=== PATIENT | female | born 1965 | race Caucasian/White ===

== ENCOUNTER → 2020-01-19 13:58 | Outpatient (CLI) | payer OTHER, SELFPAY ==
[2020-01-26 09:51] LABS: HPV APTIMA, High Risk Negative (Negative); HPV Reflexed? YES, CHARGE PATIENT
== END ==
PROVIDERS: PCP Family Medicine; Visit Provider Student in an Organized Health Care Education/Training Program
DX: Z12.4 Encounter for screening for malignant neoplasm of cervix (principal)
CPT/HCPCS: 87624; 88175; G0145

== ENCOUNTER → 2020-02-15 13:27 | Outpatient (CLI) | payer OTHER, SELFPAY ==
--- NOTE | 2020-02-15 13:31 | BI_ITS ---
MAMMOGRAPHY - BILATERAL SCREENING REASON FOR EXAM: Female, 54 years old. Routine annual screening examination. PERTINENT HISTORY: Grandmother with breast cancer. TECHNIQUE: Digital bilateral breast shay (3D mammographic acquisition) in the CC and MLO projections. 2-D mediolateral oblique (MLO) and craniocaudad (CC) views of both breasts were obtained. CAD: Full Field Digital Mammography with Computer Added Detection was performed. COMPARISON: Comparison is made with prior examination dated 09/30/2009. FINDINGS: Breast Composition: The breasts are heterogeneously dense, which may obscure small masses. There are no dominant masses or suspicious calcifications. No other significant abnormalities are identified. There has been no significant change since the prior study. BI/SCREEN MAMM (CAD) W/SHAY BILAT IMPRESSION: Stable bilateral screening mammogram. Yearly follow-up mammogram recommended. (A) ASSESSMENT CATEGORY: BIRADS Category 1: Negative. A letter regarding these results will be sent to the patient by the facility within 30 days. Approximately 10% of breast cancers are not detected by mammography. A normal mammogram should not delay biopsy of a clinically suspicious abnormality. [id number] Electronically Signed: Charles Caballero, at 14:51 EST , Service support ,
== END ==
PROVIDERS: PCP Family Medicine; Referring Provider Student in an Organized Health Care Education/Training Program; Visit Provider Student in an Organized Health Care Education/Training Program
DX: Z12.31 Encounter for screening mammogram for malignant neoplasm of breast (principal); Z80.3 Family history of malignant neoplasm of breast
CPT/HCPCS: 77063; 77067

== ENCOUNTER → 2020-12-25 10:05 | Outpatient (CLI) | payer OTHER, SELFPAY ==
[2020-12-25 11:53] LABS: Vitamin D,25 Hydroxy 24.4 ng/mL
[2020-12-25 11:58] LABS: ALB/GLOB Ratio 1.2 RATIO (0.9-2.4); AST(SGOT) 16 U/L (15-37); Alanine Aminotransfer ALT/SGPT 18 U/L (13-56); Albumin, Serum 4.2 g/dL (3.2-5.0); Alkaline Phosphatase 62 U/L (45-117); Anion Gap 6 (5-15); BUN 17 mg/dL (7-18); BUN/Creat Ratio 20.9 RATIO (10-20); Calcium,Total 9.1 mg/dL (8.5-10.1); Chloride 104 mmol/L (98-107); Cholesterol 246 mg/dL (200); Creatinine, Serum 0.81 mg/dL (0.55-1.02); EST Glomerular Filtration Rate 78 mL/min (>60); Est Glom Filt Rate - Afr Amer 95 mL/min (>60); Globulin 3.5 g/dL (2.2-4.2); Glucose 80 mg/dL (74-106); Hemoglobin A1c 5.5 % (3.8-5.6); High Density Lipoprotein 89 mg/dL; Potassium 3.7 mmol/L (3.5-5.1); Protein, Total 7.7 g/dL (6.4-8.2); Sodium Level 141 mmol/L (136-145); Thyroid Stim Hormone (TSH) 0.77 uIU/mL (0.358-3.74); Triglycerides 53 mg/dL; Very Low Density Lipoprotein 11 mg/dL (5-40)
== END ==
PROVIDERS: PCP Family Medicine; Visit Provider Student in an Organized Health Care Education/Training Program
DX: Z13.89 Encounter for screening for other disorder (principal)
CPT/HCPCS: 36415; 80053; 80061; 82306; 83036; 84443

== ENCOUNTER → 2020-12-26 14:39 | Outpatient (CLI) | payer OTHER, SELFPAY ==
--- NOTE | 2020-12-26 14:43 | BI_ITS ---
MAMMOGRAPHY - BILATERAL DIAGNOSTIC REASON FOR EXAM: Female, 55 years old. Right axillary lump. PERTINENT HISTORY: Grandmother with breast cancer. TECHNIQUE: Digital bilateral breast cheryl (3D mammographic acquisition) in the CC and MLO projections. 2-D mediolateral oblique (MLO) and craniocaudad (CC) views of both breasts were obtained. CAD: Full Field Digital Mammography with Computer Added Detection was performed. COMPARISON: Comparison is made with prior study dated 02/15/2020. FINDINGS: Breast Composition: The breasts are heterogeneously dense, which may obscure small masses. There are no dominant masses or suspicious calcifications. No other significant abnormalities are identified. There has been no significant change since the prior study. BI/DIAG MAMM W/CAD, BILAT IMPRESSION: Stable bilateral diagnostic mammogram. With the patient''s history of a right axillary lump, correlation with ultrasound is recommended. ASSESSMENT CATEGORY: BIRADS Category 0: Incomplete. Need additional imaging evaluation. A letter regarding these results will be sent to the patient by the facility within 30 days. Approximately 10% of breast cancers are not detected by mammography. A normal mammogram should not delay biopsy of a clinically suspicious abnormality. Electronically Signed: Charles Caballero MD at 15:41 EDT , Service support ,
--- NOTE | 2020-12-26 14:43 | US_ITS ---
STUDY: ULTRASOUND BREAST - RIGHT REASON FOR EXAM: Female, 55 years old. Right axillary lump. TECHNIQUE: Axial and longitudinal images of the RIGHT breast were performed with a high resolution ultrasound transducer. # OF IMAGES: 49 COMPARISON: Comparison is made with prior mammogram dated 12/26/2020. FINDINGS: RIGHT Breast: The right axilla was examined by ultrasound. No sonographic abnormality is seen. US/Breast Limited Unilateral IMPRESSION: No sonographic abnormality is seen. ASSESSMENT CATEGORY: BIRADS Category 1: Negative. A letter regarding these results will be sent to the patient by the facility within 30 days. Electronically Signed: Charles Caballero MD at 13:24 EDT , Service support ,
== END ==
LOC: OPBI 14:39
PROVIDERS: PCP Family Medicine; Visit Provider Student in an Organized Health Care Education/Training Program
DX: N63.31 Unspecified lump in axillary tail of the right breast (principal)
CPT/HCPCS: 76642; 77062; 77066; G0279

== ENCOUNTER → 2021-09-08 | Outpatient (CLI) | payer OTHER, SELFPAY ==
[2021-09-08 12:16] LABS: Absolute Lymphocyte Count 1.49 X10^3/uL (0.83-4.51); Absolute Neutrophil Count 2.7 X10^3/uL (2.0-7.7); Basophil# 0.02 X10^3/uL; Basophil% 0.4 % (0-1); Eosinophil# 0.02 X10^3/uL; Eosinophils% 0.4 % (0-5); Hemoglobin 14.7 g/dL (12.0-15.0); Lymphocyte # 1.49 X10^3/ul (0.83-4.51); Mean Corp Hgb Conc 32.7 g/dL (32-36); Mean Corpuscular Hgb 31.5 pg (27.0-32.0); Mean Corpuscular Volume 96.6 fL (81-99); Mean Platelet Vol. 11.2 fl (6.2-12.0); Monocyte# 0.36 X10^3/uL; Monocyte% 7.7 % (0-10); NRBC Flagged by Analyzer 0 % (0-5); Neutrophil # 2.69 X10^3/uL (2.7-7.7); Platelet Count 207 K/mm3 (150-450); RBC Distribution Width CV 11.8 % (11.6-14.6); RBC Distribution Width SD 41.6 fl (35.1-43.9); Red Blood Count 4.66 M/mm3 (4.2-5.4); White Blood Count 4.7 K/mm3 (4.4-11.0)
[2021-09-08 12:31] LABS: ALB/GLOB Ratio 1.2 RATIO (0.9-2.4); AST(SGOT) 20 U/L (15-37); Alanine Aminotransfer ALT/SGPT 30 U/L (13-56); Albumin, Serum 4.2 g/dL (3.2-5.0); Alkaline Phosphatase 60 U/L (45-117); Anion Gap 5 (5-15); BUN 21 mg/dL (7-18); BUN/Creat Ratio 25.4 RATIO (10-20); Calcium,Total 9.4 mg/dL (8.5-10.1); Chloride 104 mmol/L (98-107); Cholesterol 273 mg/dL (200); Creatinine, Serum 0.83 mg/dL (0.55-1.02); EST Glomerular Filtration Rate 77 mL/min (>60); Est Glom Filt Rate - Afr Amer 93 mL/min (>60); Globulin 3.5 g/dL (2.2-4.2); Glucose 96 mg/dL (74-106); High Density Lipoprotein 85 mg/dL; Potassium 4.7 mmol/L (3.5-5.1); Protein, Total 7.7 g/dL (6.4-8.2); Sodium Level 139 mmol/L (136-145); Triglycerides 92 mg/dL; Very Low Density Lipoprotein 18 mg/dL (5-40)
== END | disposition home or self-care (01) ==
LOC: BIMLAB 10:24
PROVIDERS: PCP Internal Medicine; Referring Provider Internal Medicine; Visit Provider Internal Medicine
DX: Z00.00 Encounter for general adult medical examination without abnormal findings (principal)
CPT/HCPCS: 36415; 80053; 80061; 85025

== ENCOUNTER → 2022-01-09 | Outpatient (CLI) | payer OTHER, SELFPAY ==
[2022-01-09 16:57] LABS: ALB/GLOB Ratio 1.4 RATIO (0.9-2.4); AST(SGOT) 19 U/L (15-37); Alanine Aminotransfer ALT/SGPT 36 U/L (13-56); Albumin, Serum 4.1 g/dL (3.2-5.0); Alkaline Phosphatase 52 U/L (45-117); Anion Gap 7 (5-15); BUN 18 mg/dL (7-18); BUN/Creat Ratio 26.2 RATIO (10-20); Calcium,Total 9.1 mg/dL (8.5-10.1); Chloride 106 mmol/L (98-107); Creatinine, Serum 0.69 mg/dL (0.55-1.02); EST Glomerular Filtration Rate 95 mL/min (>60); Est Glom Filt Rate - Afr Amer 115 mL/min (>60); Glucose 128 mg/dL (74-106); Potassium 3.7 mmol/L (3.5-5.1); Protein, Total 7.1 g/dL (6.4-8.2); Sodium Level 141 mmol/L (136-145)
== END | disposition home or self-care (01) ==
LOC: BIMLAB 15:27
PROVIDERS: PCP Internal Medicine; Referring Provider Internal Medicine; Visit Provider Internal Medicine
DX: E78.2 Mixed hyperlipidemia (principal)
CPT/HCPCS: 36415; 80053

== ENCOUNTER → 2022-01-12 | Outpatient (CLI) | payer OTHER, SELFPAY ==
[2022-01-12 12:41] LABS: Cholesterol 141 mg/dL (200); High Density Lipoprotein 89 mg/dL; Triglycerides 49 mg/dL; Very Low Density Lipoprotein 10 mg/dL (5-40)
== END | disposition home or self-care (01) ==
LOC: BIMLAB 08:59
PROVIDERS: PCP Internal Medicine; Referring Provider Internal Medicine; Visit Provider Internal Medicine
DX: E78.5 Hyperlipidemia, unspecified (principal)
CPT/HCPCS: 36415; 80061

== ENCOUNTER → 2022-03-18 | Outpatient (CLI) | payer OTHER, SELFPAY ==
--- NOTE | 2022-03-18 13:22 | US_ITS ---
STUDY: ULTRASOUND BREAST - RIGHT REASON FOR EXAM: Female, 56 years old. Right axillary lump. TECHNIQUE: Axial and longitudinal images of the RIGHT breast were performed with a high resolution ultrasound transducer. # OF IMAGES: 17 COMPARISON: Comparison is made with prior mammogram done earlier in the day as well as prior ultrasound of the right breast dated 12/26/2020. FINDINGS: RIGHT Breast: Targeted right axillary ultrasound was obtained. No sonographic abnormality is seen. US/Breast Limited Unilateral IMPRESSION: No sonographic abnormality is seen. ASSESSMENT CATEGORY: BIRADS Category 1: Negative. A letter regarding these results will be sent to the patient by the facility within 30 days. Electronically Signed: Charles Caballero MD at 15:07 EST ,
--- NOTE | 2022-03-18 13:22 | BI_ITS ---
MAMMOGRAPHY - BILATERAL SCREENING REASON FOR EXAM: Female, 56 years old. Routine annual screening examination. PERTINENT HISTORY: Non-contributory. TECHNIQUE: Digital bilateral breast shay (3D mammographic acquisition) in the CC and MLO projections. 2-D mediolateral oblique (MLO) and craniocaudad (CC) views of both breasts were obtained. CAD: Full Field Digital Mammography with Computer Added Detection was performed. COMPARISON: Comparison is made with prior study dated 12/26/2020 and 02/15/2020. FINDINGS: Breast Composition: The breasts are heterogeneously dense, which may obscure small masses. There are no dominant masses or suspicious calcifications. No other significant abnormalities are identified. There has been no significant change since the prior study. BI/SCRN MAMM (CAD)W/SHAY BILAT IMPRESSION: Stable bilateral screening mammogram. Yearly follow-up mammogram recommended. (A) ASSESSMENT CATEGORY: BIRADS Category 1: Negative. A letter regarding these results will be sent to the patient by the facility within 30 days. Approximately 10% of breast cancers are not detected by mammography. A normal mammogram should not delay biopsy of a clinically suspicious abnormality. [id number] Electronically Signed: Charles Caballero MD at 14:29 EST ,
== END | disposition home or self-care (01) ==
LOC: OPBI 13:19
PROVIDERS: PCP Internal Medicine; Visit Provider Student in an Organized Health Care Education/Training Program
DX: Z12.31 Encounter for screening mammogram for malignant neoplasm of breast (principal); R22.9 Localized swelling, mass and lump, unspecified; N63.31 Unspecified lump in axillary tail of the right breast
CPT/HCPCS: 76642; 77063; 77067

== ENCOUNTER → 2022-09-16 | Outpatient (CLI) | payer OTHER, SELFPAY ==
[2022-09-16 16:49] LABS: Absolute Lymphocyte Count 2.07 X10^3/uL (0.83-4.51); Absolute Neutrophil Count 4.4 X10^3/uL (2.0-7.7); Basophil# 0.02 X10^3/uL; Basophil% 0.3 % (0-1); Eosinophil# 0.04 X10^3/uL; Eosinophils% 0.6 % (0-5); Hemoglobin 14.4 g/dL (12.0-15.0); Lymphocyte # 2.07 X10^3/ul (0.83-4.51); Mean Corpuscular Hgb 31.3 pg (27.0-32.0); Mean Corpuscular Volume 97.8 fL (81-99); Mean Platelet Vol. 11.1 fl (6.2-12.0); Monocyte# 0.42 X10^3/uL; Monocyte% 6.1 % (0-10); NRBC Flagged by Analyzer 0 % (0-5); Neutrophil # 4.35 X10^3/uL (2.7-7.7); Neutrophil % 62.9 % (47-70); Platelet Count 226 K/mm3 (150-450); RBC Distribution Width CV 11.6 % (11.6-14.6); RBC Distribution Width SD 41.9 fl (35.1-43.9); White Blood Count 6.9 K/mm3 (4.4-11.0)
[2022-09-16 17:15] LABS: ALB/GLOB Ratio 1.2 RATIO (0.9-2.4); AST(SGOT) 14 U/L (15-37); Alanine Aminotransfer ALT/SGPT 26 U/L (13-56); Alkaline Phosphatase 58 U/L (45-117); Anion Gap 8 (5-15); BUN 15 mg/dL (7-18); Calcium,Total 8.9 mg/dL (8.5-10.1); Chloride 105 mmol/L (98-107); Cholesterol 145 mg/dL (200); Creatinine, Serum 0.68 mg/dL (0.55-1.02); EST Glomerular Filtration Rate 95 mL/min (>60); Est Glom Filt Rate - Afr Amer 115 mL/min (>60); Globulin 3.4 g/dL (2.2-4.2); Glucose 83 mg/dL (74-106); High Density Lipoprotein 73 mg/dL; Potassium 3.9 mmol/L (3.5-5.1); Protein, Total 7.4 g/dL (6.4-8.2); Sodium Level 141 mmol/L (136-145); Triglycerides 215 mg/dL; Very Low Density Lipoprotein 43 mg/dL (5-40)
== END | disposition home or self-care (01) ==
LOC: BIMLAB 15:21
PROVIDERS: PCP Internal Medicine; Visit Provider Internal Medicine
DX: Z00.00 Encounter for general adult medical examination without abnormal findings (principal)
CPT/HCPCS: 36415; 80053; 80061; 85025

== ENCOUNTER → 2023-03-24 | Outpatient (CLI) | payer OTHER, SELFPAY ==
--- NOTE | 2023-03-24 14:15 | BI_ITS ---
MAMMOGRAPHY - BILATERAL SCREENING REASON FOR EXAM: Female, 57 years old. Routine annual screening examination. PERTINENT HISTORY: Grandmother with breast cancer. TECHNIQUE: Digital bilateral breast shay (3D mammographic acquisition) in the CC and MLO projections. 2-D mediolateral oblique (MLO) and craniocaudad (CC) views of both breasts were obtained. CAD: Full Field Digital Mammography with Computer Added Detection was performed. COMPARISON: Comparison is made with prior study dated March 18, 2022 and December 26, 2020. FINDINGS: Breast Composition: The breasts are heterogeneously dense, which may obscure small masses. There are no dominant masses or suspicious calcifications. No other significant abnormalities are identified. There has been no significant change since the prior study. BI/SCRN MAMM (CAD)W/SHAY BILAT IMPRESSION: Stable bilateral screening mammogram. Yearly follow-up mammogram recommended. (A) ASSESSMENT CATEGORY: BIRADS Category 1: Negative. A letter regarding these results will be sent to the patient by the facility within 30 days. Approximately 10% of breast cancers are not detected by mammography. A normal mammogram should not delay biopsy of a clinically suspicious abnormality. [id number] Electronically Signed: Charles Caballero MD at 15:12 EST ,
== END | disposition home or self-care (01) ==
LOC: OPBI 14:15
PROVIDERS: PCP Internal Medicine; Referring Provider Internal Medicine; Visit Provider Internal Medicine
DX: Z12.31 Encounter for screening mammogram for malignant neoplasm of breast (principal); Z80.3 Family history of malignant neoplasm of breast
CPT/HCPCS: 77063; 77067

== ENCOUNTER → 2023-10-04 | Outpatient (CLI) | payer OTHER, SELFPAY ==
[2023-10-04 12:08] LABS: Absolute Lymphocyte Count 1.45 X10^3/uL (0.83-4.51); Absolute Neutrophil Count 3.6 X10^3/uL (2.0-7.7); Basophil# 0.03 X10^3/uL; Basophil% 0.5 % (0-1); Eosinophil# 0.02 X10^3/uL; Eosinophils% 0.4 % (0-5); Hematocrit 44.5 % (37-47); Hemoglobin 14.6 g/dL (12.0-15.0); Lymphocyte # 1.45 X10^3/ul (0.83-4.51); Lymphocyte % 26.1 % (19-41); Mean Corp Hgb Conc 32.8 g/dL (32-36); Mean Corpuscular Hgb 30.5 pg (27.0-32.0); Mean Corpuscular Volume 93.1 fL (81-99); Mean Platelet Vol. 11.1 fl (6.2-12.0); Monocyte# 0.39 X10^3/uL; NRBC Flagged by Analyzer 0 % (0-5); Neutrophil # 3.64 X10^3/uL (2.7-7.7); Neutrophil % 65.6 % (47-70); Platelet Count 213 K/mm3 (150-450); RBC Distribution Width CV 11.8 % (11.6-14.6); RBC Distribution Width SD 40.3 fl (35.1-43.9); Red Blood Count 4.78 M/mm3 (4.2-5.4); White Blood Count 5.6 K/mm3 (4.4-11.0)
[2023-10-04 12:22] LABS: ALB/GLOB Ratio 1.2 RATIO (0.9-2.4); AST(SGOT) 17 U/L (15-37); Alanine Aminotransfer ALT/SGPT 19 U/L (13-56); Alkaline Phosphatase 57 U/L (45-117); Anion Gap 4 (5-15); BUN 12 mg/dL (7-18); BUN/Creat Ratio 16.3 RATIO (10-20); Calcium,Total 9.4 mg/dL (8.5-10.1); Chloride 106 mmol/L (98-107); Cholesterol 165 mg/dL (200); Creatinine, Serum 0.74 mg/dL (0.55-1.02); EST Glomerular Filtration Rate 87 mL/min (>60); Est Glom Filt Rate - Afr Amer 105 mL/min (>60); Globulin 3.3 g/dL (2.2-4.2); Glucose 95 mg/dL (74-106); High Density Lipoprotein 92 mg/dL; Potassium 4.5 mmol/L (3.5-5.1); Protein, Total 7.3 g/dL (6.4-8.2); Sodium Level 138 mmol/L (136-145); Triglycerides 65 mg/dL; Very Low Density Lipoprotein 13 mg/dL (5-40)
== END | disposition home or self-care (01) ==
LOC: BIMLAB 10:23
PROVIDERS: PCP Internal Medicine; Referring Provider Internal Medicine; Visit Provider Internal Medicine
DX: Z00.00 Encounter for general adult medical examination without abnormal findings (principal); E78.5 Hyperlipidemia, unspecified
CPT/HCPCS: 36415; 80053; 80061; 85025

== ENCOUNTER → 2024-03-29 | Outpatient (CLI) | payer OTHER, SELFPAY ==
--- NOTE | 2024-03-29 12:52 | BI_ITS ---
PROCEDURE: SCRN MAMM (CAD)W/SHAY BILAT REASON FOR EXAM: F, Age 58 y/o, grandmother with breast cancer. TECHNIQUE: Bilateral screening digital breast tomosynthesis with 2D and 3D images. Computer aided detection. COMPARISON: Prior exam(s) dating back to March 24, 2023.. FINDINGS: The breasts are heterogeneously dense which may obscure small masses. Stable examination. No suspicious masses, areas of developing architectural distortion, or suspicious calcifications. BI/SCRN MAMM (CAD)W/SHAY BILAT IMPRESSION: BI-RADS 1: NEGATIVE. RECOMMEND ANNUAL MAMMOGRAPHIC SCREENING. Follow-up code: Routine Follow-up The patient will be notified of the results by letter. Reading Location: [place] [id number]
== END | disposition home or self-care (01) ==
PROVIDERS: PCP Internal Medicine; Referring Provider Nurse Practitioner Family; Visit Provider Nurse Practitioner Family
DX: Z12.31 Encounter for screening mammogram for malignant neoplasm of breast (principal); Z80.3 Family history of malignant neoplasm of breast
CPT/HCPCS: 77063; 77067

== ENCOUNTER → 2024-09-25 | Outpatient (CLI) | payer OTHER, SELFPAY ==
[2024-09-25 12:37] LABS: Hematocrit 44.8 % (37-47); Hemoglobin 14.7 g/dL (12.0-15.0); Immature Granulocytes Count 0.010 X10^3/uL (0.0-0.0); Mean Corp Hgb Conc 32.8 g/dL (32-36); Mean Corpuscular Volume 95.1 fL (81-99); Mean Platelet Vol. 10.9 fl (6.2-12.0); NRBC Flagged by Analyzer 0 % (0-5); Platelet Count 206 K/mm3 (150-450); RBC Distribution Width CV 11.6 % (11.6-14.6); RBC Distribution Width SD 40.7 fl (35.1-43.9); Red Blood Count 4.71 M/mm3 (4.2-5.4); White Blood Count 4.7 K/mm3 (4.4-11.0)
[2024-09-25 13:36] LABS: AST(SGOT) 21 U/L (<=31); Alanine Aminotransfer ALT/SGPT 19 U/L (<=34); Albumin, Serum 4.6 g/dL (3.5-5.0); Alkaline Phosphatase 56 U/L (35-104); Anion Gap 11 (5-15); BUN 15 mg/dL (4-19); BUN/Creat Ratio 18.9 RATIO (10-20); Calcium,Total 9.8 mg/dL (7.6-11.0); Carbon Dioxide 25.9 mmol/L (21.0-32.0); Chloride 104 mmol/L (98-108); Cholesterol 161 mg/dL (<=200); Globulin 2.5 g/dL (2.2-4.2); Glucose 91 mg/dL (70-99); Low Density Lipoprotein Calc. 67 mg/dL; Potassium 4.9 mmol/L (3.3-5.1); Triglycerides 42 mg/dL; Very Low Density Lipoprotein 8 mg/dL (5-40); cholesterol:hdl ratio screen 1.89
--- OUTSIDE RECORDS SUMMARY | 2024-09-25 21:06 | XMS RPT_ITS | CCD ---
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 Daphnie Asher Primary Care Provider [phone] [place], Dr. Eller Attending Provider [phone] Dr. Daphnie Asher Referring Provider [phone])2 Cee Cox Attending Provider Unavailable [place]hia, Dr. Eller Primary Care Provider [phone] Dr. Daphnie Asher Attending Provider [phone])2 Dr. Daphnie Asher Referring Provider [phone])2 Dr. Daphnie Asher Primary Care Provider [phone] [phone]) Dr. Daphnie Asher Attending Provider [phone])2 Dr. Daphnie Asher Referring Provider [phone])2 Dr. Daphnie Asher Primary Care Provider 1(33 0) Dr. Daphnie Asher Attending Provider [phone])2 Dr. Daphnie Asher Referring Provider [phone])2 Daphnie Asher Attending Unavailable Oleghe, Efewongbe Referring Unavailable Pilloghe, Efewongbe Primary Care Unavailable Pilloghe, Efewongbe Attending Unavailable Oleghe, Efewongbe Referring Unavailable Oleghe, Efewongbe Primary Care Unavailable Emily Turner Attending Unavailable Oleghe, Efewongbe Referring Unavailable Oleghe, Efewongbe Primary Care Unavailable Pilloghrena Efewongbe Attending Unavailable Oleghe, Efewongbe Referring Unavailable Oleghe, Efewongbe Primary Care Unavailable Oleghe, Efetsuardo Attending Unavailable PillomarielaLynn chaseestuardo Referring Unavailable [facility] Unavailable Emily Turner Attending Unavailable Emily Turner Referring [facility]available [facility] Unavailable Allergies Allergy Classification Reported Allergen(s) Allergy Type Date of Onset Reaction(s) Facility (6 sources) venom-honey bee Allergy to substance 09-09-2021 Swollen [facility] (1 source) venom-honey bee Drug allergy (disorder) 09-25-2024 [facility] Repository Medications Current Medications Medication Drug Class(es) Dates Sig (Normalized) Sig (Original) acetaminophen 500 mg / diphenhydrAMINE hydrochloride 25 mg oral tablet (5 sources) Histamine-1 Receptor Antagonist Start: 01-12-2022 take 1 tablet by mouth at bedtime Diphenhydramine- Acetaminophen (Tylenol Pm Extra Strength) 25-500 mg tablet Active 1 TABLET PO AT BEDTIME January 12, 2022 12:00am inulin 2000 mg chewable tablet (5 sources) Start: 01-12-2022 Inulin (Fiber Gummies) 2 gram tablet,chewable Active GM PO January 12, 2022 12:00am L.Acidoph, Paracasei,B. Lactis (Digestive Advantage Advanced) 10 billion cell capsule (5 sources) Start: 01-12-2022 L.Acidoph, Paracasei,B. Lactis (Digestive Advantage Advanced) 10 billion cell capsule Active CELL PO January 12, 2022 1:00am Start: 01-12-2022 L.Acidoph, Par acasei,B. Lactis (Digestive Advantage Advanced) 10 billion cell capsule Active CELL PO January 12, 2022 12:00am rosuvastatin calcium 20 mg oral tablet (12 sources) HMG-CoA Reductase Inhibitor Start: 09-16-2021 End: 12-09-2022 take 20 mg by mouth once daily Rosuvastatin Active 20 MG PO DAILY 90 December 09, 2022 3:47pm traZODone hydrochloride 50 mg oral tablet (2 sources) Serotonin Reuptake Inhibitor Start: 09-16-2022 take 50 mg by mouth at bedtime Trazodone Active 50 MG PO AT BEDTIME 60 September 15, 2022 11:00pm Completed/Discontinued Medications Medication Drug Class(es) Dates Sig (Normalized) Sig (Original) amitriptyline hydrochloride 25 mg oral tablet (6 sources) Tricyclic Antidepressant Start: 02-04-2021 End: 09-08-2021 take 25 mg by mouth at bedtime Amitriptyline Discontinued 25 MG PO AT BEDTIME February 04, 2021 12:00am September 08, 2021 9:24am calcium ascorbate 500 mg oral tablet (6 sources) Start: 02-04-2021 End: 01-12-2022 take 500 mg by mouth once daily Ascorbate Calcium (Vitamin C) Discontinued 500 MG PO DAILY February 04, 2021 12:00am January 12, 2022 8:30am cholecalciferol 0.025 mg oral tablet (6 sources) Vitamin D Start: 02-04-2021 End: 09-16-2022 take 25 ug by mouth once daily Cholecalciferol (Vitamin D3) Discontinued 25 MCG PO DAILY February 04, 2021 12:00am September 16, 2022 2:01pm Diphenhydramine-Acet aminophen (6 sources) Start: 02-04-2021 End: 02-04-2021 Diphenhydramine-Wilfredo taminophen Discontinued ML PO February 04, 2021 12:00am February 04, 2021 3:40pm Start: 02-04-2021 End: 02-04-2021 Diphenhydramine-Acetaminophe n Discontinued ML PO February 04, 2021 1:00am February 04, 2021 4:40pm [place] 1-Kxi-Wvw-Fish Oil (Fi sh Oil) 1,200 (144-216) mg capsule (5 sources) Start: 01-12-2022 End: 09-16-2022 [place] 8-Hsf-Qfp-Fish Oil (Fi sh Oil) 1,200 (144-216) mg capsule Discontinued CAP PO January 12, 2022 12:00am September 16, 2022 2:01pm 2400/720mg Start: 01-12-2022 End: 09-16-2022 [place] 2-Akn-Vyd-Fish Oil (Fi sh Oil) 1,200 (144-216) mg capsule Discontinued CAP PO January 12, 2022 1:00am September 16, 2022 3:01pm 2400/720mg Start: 01-12-2022 [place] 3-Dha-Ep a-Fish Oil (Fish Oil) 1,200 (144-216) mg capsule Active CAP PO January 12, 2022 12:00am 2400/720mg 72 hr scopolamine 0.0139 mg/hr transdermal system (6 sources) Anticholinergic Start: 08-14-2021 End: 09-08-2021 Scopolamine Base Discontinued 1 PATCH TD Every 3 Days 4 August 13, 2021 11:00pm September 08, 2021 8:50am Problems Active Problems Problem Classification Problem Date Documented Da te Episodic/Chronic Disorders of lipid metabolism (11 sources) Hyperlipidemia; Translations: [Hyperlipidemia, unspecified] Onset: 10-18-2023 Chronic Headache; including migraine (7 sources) Headache; Translations: [Headache] 02-04-2021 Episodic Headache; including migraine (1 source) Headache; including migraine; Translations: [Headache, unspecified] Onset: 10-18-2023 Past or Other Problems Problem Classification Problem Date Documented Da te Episodic/Chronic Other screening for suspected conditions (not mental disorders or infectious disease) (8 sources) Patient encounter status; Translations: [Encounter for screening for malignant neoplasm of colon] Onset: 04-18-2024 Episodic Results Test Name Value Interpretation Reference Range Facility CBC W/Diff, Automatedon 08-30 Absolute Lymph 1.35 X10 3/uL Normal 0.83-4.51 [facility] Comment on above: Performed By: #### L 500.4050, L500.4100, L100.0100 #### [facility] [address] [place], [address] Absolute Neut 3.0 X10 3/uL Normal 2.0-7.7 [facility] Comment on above: Performed By: #### L 500.4050, L500.4100, L100.0100 #### [facility] [address] [place], [address] Basophils/100 WBC (Bld) 0.6 % Normal 0-1 [facility] Comment on above: Performed By: #### L 500.4050, L500.4100, L100.0100 #### [facility] [address] [place], [address] Eosinophils/100 WBC (Bld) 0.4 % Normal 0-5 [facility] Comment on above: Performed By: #### L 500.4050, L500.4100, L100.0100 #### [facility] [address] [place], [address] Erythrocyte distribution width (RBC) [Ratio] 11.6 % Normal 11.6-14.6 [facility] Comment on above: Performed By: #### L 500.4050, L500.4100, L100.0100 #### [facility] [address] [place], [address] Hematocrit (Bld) [Volume fraction] 44.8 % Normal 37-47 [facility] Comment on above: Performed By: #### L 500.4050, L500.4100, L100.0100 #### [facility] [address] [place], [address] Hemoglobin (Bld) [Mass/Vol] 14.7 g/dL Normal 12.0-15.0 [facility] Comment on above: Performed By: #### L 500.4050, L500.4100, L100.0100 #### [facility] [address] [place], [address] IG% 0.200 Normal 0.0-0.9 [facility] Comment on above: Result Comment: IG% - Immature Granulocytes (promyelocytes, myelocytes and metamyelocytes) > 1% indicates that a LEFT SHIFT is Present. Performed By: #### L 500.4050, L500.4100, L100.0100 #### [facility] [address] [place], [address] Lymphocytes/100 WBC (Bld) 28.9 % Normal 19-41 [facility] Comment on above: Performed By: #### L 500.4050, L500.4100, L100.0100 #### [facility] [address] [place], [address] MCH (RBC) [Entitic mass] 31.2 pg Normal 27.0-32.0 [facility] Comment on above: Performed By: #### L 500.4050, L500.4100, L100.0100 #### [facility] [address] [place], [address] MCHC (RBC) [Mass/Vol] 32.8 g/dL Normal 32-36 [facility] Comment on above: Performed By: #### L 500.4050, L500.4100, L100.0100 #### [facility] [address] [place], [address] MCV (RBC) [Entitic vol] 95.1 fL Normal 81-99 [facility] Comment on above: Performed By: #### L 500.4050, L500.4100, L100.0100 #### [facility] [address] [place], [address] Monocytes/100 WBC (Bld) 5.4 % Normal 0-10 [facility] Comment on above: Performed By: #### L 500.4050, L500.4100, L100.0100 #### [facility] [address] [place], [address] Neutrophils/100 WBC (Bld) 64.5 % Normal 47-70 [facility] Comment on above: Performed By: #### L 500.4050, L500.4100, L100.0100 #### [facility] [address] [place], [address] Nucleated RBC (Bld) [#/Vol] 0 10*3/uL Normal 0-5 [facility] Comment on above: Performed By: #### L 500.4050, L500.4100, L100.0100 #### [facility] [address] [place], [address] Platelet mean volume (Bld) [Entitic vol] 10.9 fL Normal 6.2-12.0 [facility] Comment on above: Performed By: #### L 500.4050, L500.4100, L100.0100 #### [facility] [address] [place], [address] Platelets (Bld) [#/Vol] 206 10*3/uL Normal 150-450 [facility] Comment on above: Performed By: #### L 500.4050, L500.4100, L100.0100 #### [facility] [address] [place], [address] RBC (Bld) [#/Vol] 4.71 10*6/uL Normal 4.2-5.4 [facility] Comment on above: Performed By: #### L 500.4050, L500.4100, L100.0100 #### [facility] [address] [place], [address] RDW SD 40.7 fl Normal 35.1-43.9 [facility] Comment on above: Performed By: #### L 500.4050, L500.4100, L100.0100 #### [facility] [address] [place], [address] WBC (Bld) [#/Vol] 4.7 10*3/uL Normal 4.4-11.[address] [facility] Comment on above: Performed By: #### L 500.4050, L500.4100, L100.0100 #### [facility] [address] [place], [address] Comprehensive Metabolic Prof mdon 09-25-2024 Albumin [Mass/Vol] 4.6 g/dL Normal 3.5-5.[address] [facility] Comment on above: Performed By: #### L 500.4050, L500.4100, L100.0100 #### [facility] [address] [place], [address] Albumin/Globulin [Mass ratio] 1.9 {ratio} Normal 0.9-2.4 [facility] Comment on above: Performed By: #### L 500.4050, L500.4100, L100.0100 #### [facility] [address] [place], [address] ALK PHOS 56 U/L Normal 35-104 [facility] Comment on above: Performed By: #### L 500.4050, L500.4100, L100.0100 #### [facility] [address] [place], [address] ALT [Catalytic activity/Vol] 19 U/L Normal <=34 [facility] Comment on above: Performed By: #### L 500.4050, L500.4100, L100.0100 #### [facility] [address] [place], [address] AST [Catalytic activity/Vol] 21 U/L Normal <=31 [facility] Comment on above: Performed By: #### L 500.4050, L500.4100, L100.0100 #### [facility] [address] [place], [address] Bilirubin [Mass/Vol] 0.74 mg/dL Normal 0.00-1.30 [facility] Comment on above: Performed By: #### L 500.4050, L500.4100, L100.0100 #### [facility] [address] [place], [address] BUN/CRE 18.9 RATIO Normal 10-20 [facility] Comment on above: Performed By: #### L 500.4050, L500.4100, L100.0100 #### [facility] [address] [place], [address] Calcium [Mass/Vol] 9.8 mg/dL Normal 7.6-11.[address] [facility] Comment on above: Performed By: #### L 500.4050, L500.4100, L100.0100 #### [facility] [address] [place], [address] Chloride [Moles/Vol] 104 mmol/L Normal 98-108 [facility] Comment on above: Performed By: #### L 500.4050, L500.4100, L100.0100 #### [facility] [address] [place], [address] CO2 [Moles/Vol] 25.9 mmol/L Normal 21.0-32.0 [facility] Comment on above: Performed By: #### L 500.4050, L500.4100, L100.0100 #### [facility] [address] [place], [address] Creatinine [Mass/Vol] 0.77 mg/dL Normal 0.70-1.20 [facility] Comment on above: Performed By: #### L 500.4050, L500.4100, L100.0100 #### [facility] [address] [place], [address] GAP 11 Normal 5-15 [facility] Comment on above: Performed By: #### L 500.4050, L500.4100, L100.0100 #### [facility] [address] [place], [address] GFR/1.73 sq M.predicted among non-blacks MDRD (S/P/Bld) [Vol rate/Area] 90 mL/min/{1.73_m2} Normal >60 [facility] Comment on above: Result Comment: mL/m in/1.73m2 CKD-EPI Creatinine Equation (2020) Performed By: #### L 500.4050, L500.4100, L100.0100 #### [facility] [address] [place], [address] Globulin (S) [Mass/Vol] 2.5 g/dL Normal 2.2-4.2 [facility] Comment on above: Performed By: #### L 500.4050, L500.4100, L100.0100 #### [facility] [address] [place], [address] Glucose [Mass/Vol] 91 mg/dL Normal 70-[address] [facility] Comment on above: Performed By: #### L 500.4050, L500.4100, L100.0100 #### [facility] [address] [place], [address] Potassium [Moles/Vol] 4.9 mmol/L Normal 3.3-5.1 [facility] Comment on above: Performed By: #### L 500.4050, L500.4100, L100.0100 #### [facility] [address] [place], [address] Sodium [Moles/Vol] 141 mmol/L Normal 133-[address] [facility] Comment on above: Performed By: #### L 500.4050, L500.4100, L100.0100 #### [facility] [address] [place], [address] T PROT 7.1 g/dL Normal 5.9-8.4 [facility] Comment on above: Performed By: #### L 500.4050, L500.4100, L100.0100 #### [facility] [address] [place], [address] Urea nitrogen [Mass/Vol] 15 mg/dL Normal 4-19 [facility] Comment on above: Performed By: #### L 500.4050, L500.4100, L100.0100 #### [facility] [address] [place], [address] Lipid Profileon 09-25-2024 CHOL:HDL 1.89 Normal [facility] Comment on above: Performed By: #### L 500.4050, L500.4100, L100.0100 #### [facility] [address] [place], [address] Cholesterol [Mass/Vol] 161 mg/dL Normal <=200 [facility] Comment on above: Result Comment: Chol esterol level, Desirable <200 mg/dL Borderline high cholesterol 200-239 mg/dL High cholesterol >=240 mg/dL Recommendations of the NCEP Adult Treatment Panel for the following risk-cutoff thresholds for the [place] Citizen population. Performed By: #### L 500.4050, L500.4100, L100.0100 #### [facility] [address] [place], [address] Cholesterol in HDL [Mass/Vol] 85 mg/dL Normal [facility] Comment on above: Result Comment: Barb onal Cholesterol Education Program (NCEP) guidelines: <40 mg/dL: Low HDL-cholesterol (major risk factor for CHD) >= 60 mg/dL: High HDL-cholesterol (negative risk factor for CHD) HDL-cholesterol is affected by a number of factors, e.g. smoking, exercise, hormones, sex and age. Performed By: #### L 500.4050, L500.4100, L100.0100 #### [facility] [address] [place], [address] Cholesterol in LDL [Mass/Vol] 67 mg/dL Normal [facility] Comment on above: Result Comment: Bord mjiton=686-336 mg/dL Higher Thxm=232 mg/dL or greater Friedwald Equation for LDL-C Performed By: #### L 500.4050, L500.4100, L100.0100 #### [facility] [address] [place], [address] Cholesterol in VLDL [Mass/Vol] 8 mg/dL Normal 5-40 [facility] Comment on above: Performed By: #### L 500.4050, L500.4100, L100.0100 #### [facility] [address] [place], [address] Triglyceride [Mass/Vol] 42 mg/dL Normal [facility] Comment on above: Result Comment: The drugs N-Acetylcysteine and Metamizole may falsely depress this assay. Normal range: <150 mg/dL Borderline High: 150-199 mg/dL High: 200-499 mg/dL Very High: >500 mg/dL Performed By: #### L 500.4050, L500.4100, L100.0100 #### [facility] [address] [place], [address] SCRN MAMM (CAD)W/SHAY BILATo n 03-29-2024 SCRN MAMM (CAD)W/SHAY BILAT [facility] [address] [place], [place] [address] SCRN MAMM (CAD)W/SHAY BILAT MR#: [id number] Acct: [id number] Name: JOSE ROACH Rep #: [id number] : 1965 F 58 From: Charles doyle MD PCP: Dr. 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 TECHNIQUE: Bilateral screening digital breast tomosynthesis with 2D and 3D images. Computer aided detection. COMPARISON: Prior exam(s) dating back to March 24, 2023.. FINDINGS: The breasts are heterogeneously dense which may obscure small masses. Stable examination. No suspicious masses, areas of developing architectural distortion, or suspicious calcifications. BI/SCRN MAMM (CAD)W/SHAY BILAT IMPRESSION: BI-RADS 1: NEGATIVE. RECOMMEND ANNUAL MAMMOGRAPHIC SCREENING. Follow-up code: Routine Follow-up The patient will be notified of the results by letter. Reading Location: [place] [address] CC: MISHA Turner; Dr. Daphnie Asher MD Music Intern: Signed Normal [facility] Transcription Coordinator Office Visit Reporton 12-30-2023 Transcription Coordinator Office Visit Report [facility] [address], [address] [place] [address] OFFICE VISIT Date of Service: 12/30/23 MR#: [id number] Acct: [id number] Name: JOSE ROACH Rep #: [id number] : 1965 Provider: MISHA Donohue Age/Sex: 58/F Location: [facility] Status: Signed Intake Vital Signs 03/17/23 15:55 10/04/23 10:03 12/30/23 09:03 Height 5 ft 8 in 5 ft 8 in 5 ft 8 in Weight: 140 lb 144 lb BMI 21.2 21.9 BP 108/64 120/73 Blood Pressure Location Lt brachial Position Sitting Respiration 14 Pulse 72 Pulse Source Monitor Temp 97.2 F L Pulse Oximetry (%) 99 Oxygen Delivery Method room air 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 Clinching Machine Operator Required: No Is patient in pain?: No Allergies venom-honey bee Allergy (Intermediate, Verified 12/30/23 09:04) Swollen Medications ???Medication ???Instructions ???Recorded ???Confirmed ???Type diphenhydramine 25 1 tab PO QHS PRN 01/12/22 12/30/23 History mg-acetaminophen 500 mg tablet (Tylenol PM Extra Strength) inulin 2 gram chewable tablet g PO 01/12/22 12/30/23 History (Fiber Gummies) rosuvastatin 20 mg tablet 20 mg PO DAILY #90 tabs 08/29/23 12/30/23 Rx Is last menstrual period known: No Post menopausal: Yes Date of menopause: 03/01/18 (Greater than 5 years ago. ) Patient : No : No Control Method: none PFSH Medical History Preventative health care Health care maintenance Headache Hyperlipidemia Colon cancer screening Family History (Updated 12/30/23 @ 09:06 by Krupa Gamble) Father Cancer Grandmother Breast cancer, Onset Age: 40 Social History (Updated 12/30/23 @ 09:07 by Krupa Gamble) adopted: No number of children: 3 current occupational status: retired sexually active: No Smoking Status: Never smoker alcohol intake: never substance use type: does not use rafael/episcopalian: Spiritism seatbelt use: always do you feel safe at home: Yes additional social history: History 3 Elective abortions Hx Para 3 Spontaneous abortions Hx # Term Pregnancies Ectopic pregnancies Hx # Pregnancies Multiple births # of living children 3 HPI Encounter for routine gynecological examination Details: JOSE ROACH is a 58 year old who presents for annual exam. She reports no issues or concerns today. 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 Last PAP: 2019; negative cyt/negative HPV. History of abnormal PAP: no Last mammogram: 2023 History of abnormal mammogram: no; does have axillary lump; right side. previously worked up (2020) with negative ultrasound. Has had greater than 20 yrs. Colon cancer screenin-cologaurd. Other preventative health care screenings: [place]- pcp Female Reproductive History Questions: metorrhagia: No, sexually active: No, dyspareunia: No and PCB: No Date of menopause: 03/01/18 (Greater than 5 years ago. ) ROS Const Constitutional: Denies chills, fatigue, fever(s), headache(s) or weight loss Eyes Eyes: Denies change in vision ENT ENT: Denies dizziness Resp Resp: Denies cough GI GI: Denies abdominal pain, constipation or nausea : Denies difficulty voiding, dysuria, hematuria, nipple discharge, pelvic pain, prolapse symptoms, urinary incontinence, vaginal discharge, vaginal dryness, vaginal odor or vaginal pruritus Skin Skin/Breast: Denies alopecia, rash, breast mass, breast pain, breast skin changes or nipple discharge Neuro Neuro: Denies dizziness Psych Psych: Denies anxiety or depression Endo Endo: Denies cold intolerance, excessive sweating or heat intolerance Exam Const General: cooperative, healthy appearing, comfortable, no acute distress, well groomed and well hydrated Nutritional Appearance: well nourished Orientation: alert, awake and oriented x3 HENMT Head: normal to inspection and normocephalic Ears: hearing grossly normal bilaterally and external ears normal Nose: external nose normal Face and sinus: normal facial exam Eyes General: appearance normal, both eyes and all related structures Neck Neck: normal visual inspection, full ROM and no lymphadenopathy Thyroid: thyroid normal Chest Chest palpation inspection: normal inspection of the chest Breast inspection: normal inspection of the breasts and normal inspection of the axillae Breast palpation: normal palpation of the breasts, normal palpation of the axillae and no axillary lymphadenopathy Resp Effort Inspection: normal respiratory effort, able to speak in complete sentences and symmetric chest movement GI Inspection: normal to inspection Palpation: soft and no hepatosplenomegaly General: bladder rojas (more content not included)... Normal [facility] CBC W/Diff, Automatedon 08-0 5-2023 Absolute Lymph 1.45 X10 3/uL Normal 0.83-4.51 [facility] Comment on above: Performed By: #### L 500.4100, L100.0100, L500.4050 #### [facility] [address] [facility] [place], [address] Absolute Neut 3.6 X10 3/uL Normal 2.0-7.7 [facility] Comment on above: Performed By: #### L 500.4100, L100.0100, L500.4050 #### [facility] [address] [place], [address] Basophils/100 WBC (Bld) 0.5 % Normal 0-1 [facility] Comment on above: Performed By: #### L 500.4100, L100.0100, L500.4050 #### [facility] [address] [place], [address] Eosinophils/100 WBC (Bld) 0.4 % Normal 0-5 [facility] Comment on above: Performed By: #### L 500.4100, L100.0100, L500.4050 #### [facility] [address] [place], [address] Erythrocyte distribution width (RBC) [Ratio] 11.8 % Normal 11.6-14.6 [facility] Comment on above: Performed By: #### L 500.4100, L100.0100, L500.4050 #### [facility] [address] [place], [address] Hematocrit (Bld) [Volume fraction] 44.5 % Normal 37-47 [facility] Comment on above: Performed By: #### L 500.4100, L100.0100, L500.4050 #### [facility] [address] [place], [address] Hemoglobin (Bld) [Mass/Vol] 14.6 g/dL Normal 12.0-15.0 [facility] Comment on above: Performed By: #### L 500.4100, L100.0100, L500.4050 #### [facility] [address] [place], [address] IG% 0.400 Normal 0.0-0.9 [facility] Comment on above: Result Comment: IG% - Immature Granulocytes (promyelocytes, myelocytes and metamyelocytes) > 1% indicates that a LEFT SHIFT is Present. Performed By: #### L 500.4100, L100.0100, L500.4050 #### [facility] [address] [place], [address] Lymphocytes/100 WBC (Bld) 26.1 % Normal 19-41 [facility] Comment on above: Performed By: #### L 500.4100, L100.0100, L500.4050 #### [facility] [address] [place], [address] MCH (RBC) [Entitic mass] 30.5 pg Normal 27.0-32.0 [facility] Comment on above: Performed By: #### L 500.4100, L100.0100, L500.4050 #### [facility] [address] [place], [address] MCHC (RBC) [Mass/Vol] 32.8 g/dL Normal 32-36 [facility] Comment on above: Performed By: #### L 500.4100, L100.0100, L500.4050 #### [facility] [address] [place], [address] MCV (RBC) [Entitic vol] 93.1 fL Normal 81-99 [facility] Comment on above: Performed By: #### L 500.4100, L100.0100, L500.4050 #### [facility] [address] [place], [address] Monocytes/100 WBC (Bld) 7.0 % Normal 0-10 [facility] Comment on above: Performed By: #### L 500.4100, L100.0100, L500.4050 #### [facility] [address] [place], [address] Neutrophils/100 WBC (Bld) 65.6 % Normal 47-70 [facility] Comment on above: Performed By: #### L 500.4100, L100.0100, L500.4050 #### [facility] [address] [place], [address] Nucleated RBC (Bld) [#/Vol] 0 10*3/uL Normal 0-5 [facility] Comment on above: Performed By: #### L 500.4100, L100.0100, L500.4050 #### [facility] [address] [place], [address] Platelet mean volume (Bld) [Entitic vol] 11.1 fL Normal 6.2-12.0 [facility] Comment on above: Performed By: #### L 500.4100, L100.0100, L500.4050 #### [facility] [address] [place], [address] Platelets (Bld) [#/Vol] 213 10*3/uL Normal 150-450 [facility] Comment on above: Performed By: #### L 500.4100, L100.0100, L500.4050 #### [facility] [address] [place], [address] RBC (Bld) [#/Vol] 4.78 10*6/uL Normal 4.2-5.4 [facility] Comment on above: Performed By: #### L 500.4100, L100.0100, L500.4050 #### [facility] [address] [place], [address] RDW SD 40.3 fl Normal 35.1-43.9 [facility] Comment on above: Performed By: #### L 500.4100, L100.0100, L500.4050 #### [facility] [address] [place], [address] WBC (Bld) [#/Vol] 5.6 10*3/uL Normal 4.4-11.[address] [facility] Comment on above: Performed By: #### L 500.4100, L100.0100, L500.4050 #### [facility] [address] [place], [address] Comprehensive Metabolic Prof [facility] 10-04-2023 Albumin [Mass/Vol] 4.0 g/dL Normal 3.2-5.[address] [facility] Comment on above: Performed By: #### L 500.4100, L100.0100, L500.4050 #### [facility] [address] [place], [address] Albumin/Globulin [Mass ratio] 1.2 {ratio} Normal 0.9-2.4 [facility] Comment on above: Performed By: #### L 500.4100, L100.0100, L500.4050 #### [facility] [address] [place], [address] ALK P 57 U/L Normal 45-117 [facility] Comment on above: Performed By: #### L 500.4100, L100.0100, L500.4050 #### [facility] [address] [place], [address] ALT [Catalytic activity/Vol] 19 U/L Normal 13-56 [facility] Comment on above: Performed By: #### L 500.4100, L100.0100, L500.4050 #### [facility] [address] [place], [address] AST [Catalytic activity/Vol] 17 U/L Normal 15-37 [facility] Comment on above: Performed By: #### L 500.4100, L100.0100, L500.4050 #### [facility] [address] [place], [address] Bilirubin [Mass/Vol] 1.00 mg/dL Normal 0.20-1.00 [facility] Comment on above: Result Comment: For patients on eltrombopag therapy, use of Dimension [place] TBIL is not recommended. Performed By: #### L 500.4100, L100.0100, L500.4050 #### [facility] [address] [place], [address] BUN/CRE 16.3 RATIO Normal 10-20 [facility] Comment on above: Performed By: #### L 500.4100, L100.0100, L500.4050 #### [facility] [address] [place], [address] CA,Total 9.4 mg/dL Normal 8.5-10.1 [facility] Comment on above: Performed By: #### L 500.4100, L100.0100, L500.4050 #### [facility] [address] [place], [address] Chloride [Moles/Vol] 106 mmol/L Normal 98-107 [facility] Comment on above: Performed By: #### L 500.4100, L100.0100, L500.4050 #### [facility] [address] [place], [address] CO2 [Moles/Vol] 28.0 mmol/L Normal 21.0-32.0 [facility] Comment on above: Performed By: #### L 500.4100, L100.0100, L500.4050 #### [facility] [address] [place], [address] Creatinine [Mass/Vol] 0.74 mg/dL Normal 0.55-1.02 [facility] Comment on above: Result Comment: The validity of the calculated GFR GFRAA in patients over 70 years has not been determined. Clinical correlation is essential. Performed By: #### L 500.4100, L100.0100, L500.4050 #### [facility] [address] [place], [address] EST GFR - AA 105 mL/min Normal >60 [facility] Comment on above: Result Comment: Afri can [place] Citizen GFR Calc Performed By: #### L 500.4100, L100.0100, L500.4050 #### [facility] [address] [place], [address] GAP 4 Low 5-15 [facility] Comment on above: Performed By: #### L 500.4100, L100.0100, L500.4050 #### [facility] [address] [place], [address] GFR/1.73 sq M.predicted among non-blacks MDRD (S/P/Bld) [Vol rate/Area] 87 mL/min/{1.73_m2} Normal >60 [facility] Comment on above: Result Comment: Non- GFR Calc Performed By: #### L 500.4100, L100.0100, L500.4050 #### [facility] [address] [place], [address] Globulin (S) [Mass/Vol] 3.3 g/dL Normal 2.2-4.2 [facility] Comment on above: Performed By: #### L 500.4100, L100.0100, L500.4050 #### [facility] [address] [place], [address] Glucose [Mass/Vol] 95 mg/dL Normal 74-[address] [facility] Comment on above: Performed By: #### L 500.4100, L100.0100, L500.4050 #### [facility] [address] [place], [address] Potassium [Moles/Vol] 4.5 mmol/L Normal 3.5-5.1 [facility] Comment on above: Performed By: #### L 500.4100, L100.0100, L500.4050 #### [facility] [address] [place], [address] Sodium [Moles/Vol] 138 mmol/L Normal 136-[address] [facility] Comment on above: Performed By: #### L 500.4100, L100.0100, L500.4050 #### [facility] [address] [place], [address] T PROT 7.3 g/dL Normal 6.4-8.2 [facility] Comment on above: Performed By: #### L 500.4100, L100.0100, L500.4050 #### [facility] [address] [place], [address] Urea nitrogen [Mass/Vol] 12 mg/dL Normal 7-18 [facility] Comment on above: Performed By: #### L 500.4100, L100.0100, L500.4050 #### [facility] [address] [place], [address] Internal Medicine Office Vis iton 10-04-2023 Internal Medicine Office Visit [facility] [address] [place] [address] OFFICE VISIT Date of Service: 10/04/23 MR#: [id number] Acct: [id number] Name: JOSE ROACH Rep #: [id number] : 1965 Provider: Dr. 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 lactis 10 cell PO 01/12/22 10/04/23 History billion cell capsule (Digestive Advantage Advanced Probiotic) diphenhydramine 25 1 tab PO QHS PRN 01/12/22 10/04/23 History mg-acetaminophen 500 mg tablet (Tylenol PM Extra Strength) inulin 2 gram chewable tablet g PO 01/12/22 10/04/23 History (Fiber Gummies) rosuvastatin 20 mg tablet 20 mg PO DAILY #90 tabs 08/29/23 10/04/23 Rx Nurse's Note: Needs refill for crestor. is fasting today for labs. PFSH Medical History Preventative health care Health care maintenance Headache Hyperlipidemia Colon cancer screening Social History Smoking Status: Never smoker alcohol intake: never substance use type: does not use HPI HPI Chief Complaint: Preventative Details: JOSE ROACH, is a 57 F who presents to the office today for preventative/yearly. No acute concerns at this time. No significant personal or family history changes since her last visit. Has been very active exercising most days of the week. Taking her medication as prescribed. Chronic headaches are still largely the same. Typically worse at the end of the day and in the morning. We had discussed magnesium at her last visit however, she states that she did not start this. Has an appointment with [facility] shortly. Recent visit with dermatology. Last colon cancer screening by [facility] in 2021. ROS Const Constitutional: No body ache, chills, excessive sweating, fatigue, fever(s), frequent falls, headache(s), snoring, weakness, sleep problems or change in appetite Eyes Eyes: No blurry vision, change in vision, eye pain or Light sensitivity ENT ENT: No abnormal hearing, ear or mastoid pain, tinnitus, nasal congestion, headache(s), neck pain or sore throat Resp Respiratory: No cough, shortness of breath, snoring or wheezing Cardio Cardiology: No chest pain at rest, chest pain with exertion, excessive sweating, shortness of breath, dyspnea on exertion, lightheadedness, orthopnea or palpitations Gastro GI: No abdominal pain, change in bowel habits, constipation, cramping, diarrhea, nausea/dyspepsia or vomiting Genitourinary-Female: No burning urination, painful urination, urinary incontinence, urinary frequency, abnormal vaginal bleeding or pelvic pain Musc Musculoskeletal: No abnormal gait, joint pain, back pain, limited range of motion, neck pain or numbness Skin Skin: No dry skin, redness, lesions, itchy eyes, rash or wounds Neuro Neurology: No abnormal gait, abnormal hearing, weakness, frequent falls, headache(s), memory loss or numbness Psych Psychiatric: No anxiety, No change in appetite, No depression, No memory loss and No Thoughts of harming yourself/Others Endo Endocrine: No cold intolerance, excessive sweating, fatigue, flushing, heat intolerance, increased thirst/drinking or increased hunger Aller/Imm Allergy/Immunologic: No itchy eyes, seasonal allergy symptoms, hives or wheezing Thomas/Lymp Hematologic/Lymphatic: No easy bleeding, easy bruising, enlarged lymph nodes or other Exam Const General: cooperative, healthy appearing, comfortable and no acute distress Orientation: alert, awake and oriented x3 HENMT Head: normal to inspection, normocephalic and atraumatic Ears: hearing grossly normal bilaterally Eyes General: appearance normal, both eyes and all related structures Neck Neck: normal visual inspection, full ROM, no lymphadenopathy and supple Neck mass: No Thyroid: thyroid normal Resp Effort Inspection: normal respiratory effort and able to speak in complete sentences Auscultation: Bilateral: Clear to Auscultation Cardio Rate: regular rate Rhythm: regular rhythm Heart Sounds: S1 normal and S2 normal GI Palpation: soft (Nontender, no palpable organomegal (more content not included)... Normal [facility] Lipid Profileon 10-04-2023 Cholesterol [Mass/Vol] 165 mg/dL Normal 200 [facility] Comment on above: Result Comment: <200 mg/dL Desirable 200-240 mg/dL Borderline >240 mg/dL High Risk Performed By: #### L 500.4100, L100.0100, L500.4050 #### [facility] [address] [place], [address] Cholesterol in HDL [Mass/Vol] 92 mg/dL Normal [facility] Comment on above: Result Comment: The drugs N-Acetylcysteine and Metamizole may falsely depress this assay. Reference Range HDL <40 mg/dL Low HDL Cholesterol HDL >or= 60 mg/dL High HDL Cholesterol Performed By: #### L 500.4100, L100.0100, L500.4050 #### [facility] [address] [place], [address] Cholesterol in LDL [Mass/Vol] 60 mg/dL Normal 0-130 [facility] Comment on above: Performed By: #### L 500.4100, L100.0100, L500.4050 #### [facility] [address] [place], [address] Cholesterol in VLDL [Mass/Vol] 13 mg/dL Normal 5-40 [facility] Comment on above: Performed By: #### L 500.4100, L100.0100, L500.4050 #### [facility] [address] [place], [address] Triglyceride [Mass/Vol] 65 mg/dL Normal [facility] Comment on above: Result Comment: The drugs N-Acetylcysteine and Metamizole may falsely depress this assay. Serum Triglycerides Reference Interval Normal <150 mg/dL Borderline high 150 - 199 mg/dL High 200 - 499 mg/dL Very High > or = 500 mg/dL Performed By: #### L 500.4100, L100.0100, L500.4050 #### [facility] [address] [place], [address] Absolute lymphocyte countOrd ered By: Daphnie Asher on 09-16-2022 Lymphocytes Auto (Unsp spec) [#/Vol] 2.07 10*3/uL 0.83-4.51 [facility] Basophil percentageOrdered B y: Daphnie Asher on 09-16-2022 Basophils/100 WBC (Bld) 0.3 % 0-1 [facility] Bilirubin [Mass/Vol] 0.60 mg/dL 0.20-1.00 [facility] Comment on above: For patients on eltr ombopag therapy, use of Dimension [place] TBIL is not recommended. Chloride [Moles/Vol] 105 mmol/L 98-107 [facility] Cholesterol [Mass/Vol] 145 mg/dL <200 [facility] Comment on above: <200 mg/dL Desirable 200-240 mg/dL Borderline >240 mg/dL High Risk Eosinophils/100 WBC (Bld) 0.6 % 0-5 [facility] Glucose [Mass/Vol] 83 mg/dL 74-[address] [facility] Neutrophils (Bld) [#/Vol] 4.4 10*3/uL 2.0-7.7 [facility] Neutrophils/100 WBC (Bld) 62.9 % 47-70 [facility] Potassium [Moles/Vol] 3.9 mmol/L 3.5-5.1 [facility] Protein [Mass/Vol] 7.4 g/dL 6.4-8.[address] [facility] Sodium [Moles/Vol] 141 mmol/L 136-[address] [facility] Triglyceride [Mass/Vol] 215 mg/dL <199 [facility] Comment on above: The drugs N-Acetylcy steine and Metamizole may falsely depress this assay.Serum Triglycerides Reference Interval Normal <150 mg/dL Borderline high 150 - 199 mg/dL High 200 - 499 mg/dL Very High > or = 500 mg/dL WBC (Bld) [#/Vol] 6.9 10*3/uL 4.4-11.[address] [facility] Blood erythrocytes count (nu mber/volume)Ordered By: Daphnie Asher on 09-16-2022 RBC (Bld) [#/Vol] 4.60 10*6/uL 4.2-5.4 [facility] Blood hemoglobin measurement (mass/volume)Ordered By: Daphnie Asher on 09-16-2022 Hemoglobin (Bld) [Mass/Vol] 14.4 g/dL 12.0-15.0 [facility] Blood lymphocytes/100 leukoc ytesOrdered By: Daphnie Asher on 09-16-2022 Lymphocytes/100 WBC (Bld) 30.0 % 19-41 [facility] Blood monocytes/100 leukocyt esOrdered By: Daphnie Asher on 09-16-2022 Monocytes/100 WBC (Bld) 6.1 % 0-10 [facility] Blood platelet mean volumeOr dered By: Daphnie Asher on 09-16-2022 Platelet mean volume (Bld) [Entitic vol] 11.1 fL 6.2-12.0 [facility] Determination of erythrocyte mean corpuscular volume (MCV)Ordered By: Daphnie Asher on 09-16-2022 MCV (RBC) [Entitic vol] 97.8 fL 81-99 [facility] Hematocrit Auto (Bld) [Volum e fraction]Ordered By: Daphnie Asher on 09-16-2022 Hematocrit (Bld) [Volume fraction] 45.0 % 37-47 [facility] - Chemistry and C hemistry - challengeOrdered By: Daphnie Asher on 09-16-2022 ALP [Catalytic activity/Vol] 58 U/L 45-117 [facility] ALT [Catalytic activity/Vol] 26 U/L 13-56 [facility] CO2 [Moles/Vol] 28.0 mmol/L 21.0-32.0 [facility] Globulin (S) [Mass/Vol] 3.4 g/dL 2.2-4.2 [facility] Urea nitrogen/Creatinine [Mass ratio] 22.0 mg/mg 10-20 [facility] - Hematology and Cell countsOrdered By: Daphnie Asher on 09-16-2022 Erythrocyte distribution width (RBC) [Entitic vol] 41.9 fL 35.1-43.9 [facility] Erythrocyte distribution width (RBC) [Ratio] 11.6 % 11.6-14.6 [facility] Immature granulocytes/100 WBC (Bld) 0.100 % 0.0-0.9 [facility] Comment on above: IG% - Immature Granu locytes (promyelocytes, myelocytes and metamyelocytes) > 1% indicates that a LEFT SHIFT is Present. MCH (RBC) [Entitic mass] 31.3 pg 27.0-32.0 [facility] Nucleated RBC/100 WBC (Bld) [Ratio] 0 % 0-5 [facility] MCHC Auto (RBC) [Mass/Vol]Or dered By: Daphnie Asher on 09-16-2022 MCHC (RBC) [Mass/Vol] 32.0 g/dL 32-36 [facility] No Panel InformationOrdered By: Daphnie Asher on 09-16-2022 Estimated GFR (MDRD) Amer 115 mL/min >60 [facility] Comment on above: GFR Calc Estimated GFR (MDRD) Non-Af Amer 95 mL/min >60 [facility] Comment on above: Non- GFR Calc Platelets bldOrdered By: Diego Asher on 09-16-2022 Platelets (Bld) [#/Vol] 226 10*3/uL 150-450 [facility] Serum or plasma albumin lydia urement (mass/volume)Ordered By: Daphnie Ferromarielarena on 09-16-2022 Albumin [Mass/Vol] 4.0 g/dL 3.2-5.[address] [facility] Serum or plasma albumin/glob ulin mass ratioOrdered By: Daphnie Ferromarielarena on 09-16-2022 Albumin/Globulin [Mass ratio] 1.2 {ratio} 0.9-2.4 [facility] Serum or plasma calcium lydia urement (mass/volume)Ordered By: Daphnie Ferromarielarena on 09-16-2022 Calcium [Mass/Vol] 8.9 mg/dL 8.5-10.[address] [facility] Serum or plasma cholesterol in HDL measurement (mass/volume)Ordered By: Daphnie Ferromarielarena on 09-16-2022 Cholesterol in HDL [Mass/Vol] 73 mg/dL >40 [facility] Comment on above: The drugs N-Acetylcy steine and Metamizole may falsely depress this assay. Reference Range HDL <40 mg/dL Low HDL Cholesterol HDL >or= 60 mg/dL High HDL Cholesterol Serum or plasma cholesterol in VLDL measurement (mass/volume)Ordered By: Daphnie Asher on 09-16-2022 Cholesterol in VLDL [Mass/Vol] 43 mg/dL 5-40 [facility] Serum or plasma creatinine m easurement (mass/volume)Ordered By: Daphnie Asher on 09-16-2022 Creatinine [Mass/Vol] 0.68 mg/dL 0.55-1.02 [facility] Comment on above: The validity of the calculated GFR & GFRAA in patients over 70 years has not been determined. Clinical correlation is essential. Serum or plasma low density lipoprotein (LDL) cholesterol measurement (mass/volume)Ordered By: Daphnie Asher on 09-16-2022 Cholesterol in LDL [Mass/Vol] 29 mg/dL 0-130 [facility] Serum or plasma urea nitroge n measurement (mass/volume)Ordered By: Daphnie Asher on 09-16-2022 Urea nitrogen [Mass/Vol] 15 mg/dL 7-18 [facility] Thin prep Papanicolaou smear with manual screeningOrdered By: Daphnie Asher on 09-16-2022 Thin prep Papanicolaou smear with manual screening 14 U/L 15-37 [facility] Thin prep Papanicolaou smear with manual screening 8 5-15 [facility] Basophil percentageOrdered B y: Dr. Asher on 01-12-2022 Cholesterol [Mass/Vol] 141 mg/dL <200 [facility] Comment on above: <200 mg/dL Desirable 200-240 mg/dL Borderline >240 mg/dL High Risk Triglyceride [Mass/Vol] 49 mg/dL <199 [facility] Comment on above: The drugs N-Acetylcy steine and Metamizole may falsely depress this assay.Serum Triglycerides Reference Interval Normal <150 mg/dL Borderline high 150 - 199 mg/dL High 200 - 499 mg/dL Very High > or = 500 mg/dL Serum or plasma cholesterol in HDL measurement (mass/volume)Ordered By: Dr. Asher on 01-12-2022 Cholesterol in HDL [Mass/Vol] 89 mg/dL >40 [facility] Comment on above: The drugs N-Acetylcy steine and Metamizole may falsely depress this assay. Reference Range HDL <40 mg/dL Low HDL Cholesterol HDL >or= 60 mg/dL High HDL Cholesterol Serum or plasma cholesterol in VLDL measurement (mass/volume)Ordered By: Dr. Asher on 01-12-2022 Cholesterol in VLDL [Mass/Vol] 10 mg/dL 5-40 [facility] Serum or plasma low density lipoprotein (LDL) cholesterol measurement (mass/volume)Ordered By: Dr. Asher on 01-12-2022 Cholesterol in LDL [Mass/Vol] 42 mg/dL 0-130 [facility] Basophil percentageOrdered B y: Dr. Asher on 01-09-2022 Bilirubin [Mass/Vol] 0.90 mg/dL 0.20-1.00 [facility] Comment on above: For patients on eltr ombopag therapy, use of Dimension [place] TBIL is not recommended. Chloride [Moles/Vol] 106 mmol/L 98-107 [facility] Glucose [Mass/Vol] 128 mg/dL 74-[address] [facility] Comment on above: Fasting Glucose resu lt greater than or equal to 126 mg/dL suggests DIABETES MELLITUS per A.D.A. criteria. Potassium [Moles/Vol] 3.7 mmol/L 3.5-5.1 [facility] Protein [Mass/Vol] 7.1 g/dL 6.4-8.[address] [facility] Sodium [Moles/Vol] 141 mmol/L 136-[address] [facility] Laboratory - Chemistry and C hemistry - challengeOrdered By: Dr. Asher on 01-09-2022 ALP [Catalytic activity/Vol] 52 U/L 45-117 [facility] ALT [Catalytic activity/Vol] 36 U/L 13-56 [facility] CO2 [Moles/Vol] 28.0 mmol/L 21.0-32.0 [facility] Globulin (S) [Mass/Vol] 3.0 g/dL 2.2-4.2 [facility] Urea nitrogen/Creatinine [Mass ratio] 26.2 mg/mg 10-20 [facility] No Panel InformationOrdered By: Dr. Asher on 01-09-2022 Estimated GFR (MDRD) Amer 115 mL/min >60 [facility] Comment on above: GFR Calc Estimated GFR (MDRD) Non-Af Amer 95 mL/min >60 [facility] Comment on above: Non- GFR Calc Serum or plasma albumin lydia urement (mass/volume)Ordered By: Dr. Asher on 01-09-2022 Albumin [Mass/Vol] 4.1 g/dL 3.2-5.[address] [facility] Serum or plasma albumin/glob ulin mass ratioOrdered By: Dr. Asher on 01-09-2022 Albumin/Globulin [Mass ratio] 1.4 {ratio} 0.9-2.4 [facility] Serum or plasma calcium lydia urement (mass/volume)Ordered By: Dr. Asher on 01-09-2022 Calcium [Mass/Vol] 9.1 mg/dL 8.5-10.[address] [facility] Serum or plasma creatinine m easurement (mass/volume)Ordered By: Dr. Asher on 01-09-2022 Creatinine [Mass/Vol] 0.69 mg/dL 0.55-1.02 [facility] Comment on above: The validity of the calculated GFR & GFRAA in patients over 70 years has not been determined. Clinical correlation is essential. Serum or plasma urea nitroge n measurement (mass/volume)Ordered By: Dr. Asher on 01-09-2022 Urea nitrogen [Mass/Vol] 18 mg/dL 7-18 [facility] Thin prep Papanicolaou smear with manual screeningOrdered By: Dr. Asher on 01-09-2022 Thin prep Papanicolaou smear with manual screening 19 U/L 15-37 [facility] Thin prep Papanicolaou smear with manual screening 7 5-15 [facility] Absolute lymphocyte counton 09-08-2021 Lymphocytes Auto (Unsp spec) [#/Vol] 1.49 10*3/uL 0.83-4.51 [facility] Work Phone: Basophil percentageon 2021 Basophils/100 WBC (Bld) 0.4 % 0-1 [facility] Work Phone: Bilirubin [Mass/Vol] 0.90 mg/dL 0.20-1.00 [facility] Work Phone: Comment on above: For patients on eltr ombopag therapy, use of Dimension [place] TBIL is not recommended. Chloride [Moles/Vol] 104 mmol/L 98-107 [facility] Work Phone: Cholesterol [Mass/Vol] 273 mg/dL <200 [facility] Work Phone: Comment on above: <200 mg/dL Desirable 200-240 mg/dL Borderline >240 mg/dL High Risk Eosinophils/100 WBC (Bld) 0.4 % 0-5 [facility] Work Phone: Glucose [Mass/Vol] 96 mg/dL 74-[address] [facility] Work Phone: Neutrophils (Bld) [#/Vol] 2.7 10*3/uL 2.0-7.7 [facility] Work Phone: Neutrophils/100 WBC (Bld) 58.0 % 47-70 [facility] Work Phone: Potassium [Moles/Vol] 4.7 mmol/L 3.5-5.1 [facility] Work Phone: Protein [Mass/Vol] 7.7 g/dL 6.4-8.[address] [facility] Work Phone: Sodium [Moles/Vol] 139 mmol/L 136-[address] [facility] Work Phone: Triglyceride [Mass/Vol] 92 mg/dL <199 [facility] Work Phone: Comment on above: The drugs N-Acetylcy steine and Metamizole may falsely depress this assay.Serum Triglycerides Reference Interval Normal <150 mg/dL Borderline high 150 - 199 mg/dL High 200 - 499 mg/dL Very High > or = 500 mg/dL WBC (Bld) [#/Vol] 4.7 10*3/uL 4.4-11.[address] [facility] Work Phone: Blood erythrocytes count (nu mber/volume)on 09-08-2021 RBC (Bld) [#/Vol] 4.66 10*6/uL 4.2-5.4 [facility] Work Phone: Blood hemoglobin measurement (mass/volume)on 09-08-2021 Hemoglobin (Bld) [Mass/Vol] 14.7 g/dL 12.0-15.0 [facility] Work Phone: Blood lymphocytes/100 leukoc yteson 09-08-2021 Lymphocytes/100 WBC (Bld) 32.0 % 19-41 [facility] Work Phone: Blood monocytes/100 leukocyt eson 09-08-2021 Monocytes/100 WBC (Bld) 7.7 % 0-10 [facility] Work Phone: Blood platelet mean volumeon 09-08-2021 Platelet mean volume (Bld) [Entitic vol] 11.2 fL 6.2-12.0 [facility] Work Phone: Determination of erythrocyte mean corpuscular volume (MCV)on 09-08-2021 MCV (RBC) [Entitic vol] 96.6 fL 81-99 [facility] Work Phone: Hematocrit Auto (Bld) [Volum e fraction]on 09-08-2021 Hematocrit (Bld) [Volume fraction] 45.0 % 37-47 [facility] Work Phone: Laboratory - Chemistry and C hemistry - challengeon 09-08-2021 ALP [Catalytic activity/Vol] 60 U/L 45-117 [facility] Work Phone: ALT [Catalytic activity/Vol] 30 U/L 13-56 [facility] Work Phone: CO2 [Moles/Vol] 30.0 mmol/L 21.0-32.0 [facility] Work Phone: Globulin (S) [Mass/Vol] 3.5 g/dL 2.2-4.2 [facility] Work Phone: Urea nitrogen/Creatinine [Mass ratio] 25.4 mg/mg 10-20 [facility] Work Phone: Laboratory - Hematology and Cell countson 09-08-2021 Erythrocyte distribution width (RBC) [Entitic vol] 41.6 fL 35.1-43.9 [facility] Work Phone: Erythrocyte distribution width (RBC) [Ratio] 11.8 % 11.6-14.6 [facility] Work Phone: Immature granulocytes/100 WBC (Bld) 1.500 % 0.0-0.9 [facility] Work Phone: Comment on above: IG% - Immature Granu locytes (promyelocytes, myelocytes and metamyelocytes) > 1% indicates that a LEFT SHIFT is Present. MCH (RBC) [Entitic mass] 31.5 pg 27.0-32.0 [facility] Work Phone: Nucleated RBC/100 WBC (Bld) [Ratio] 0 % 0-5 [facility] Work Phone: MCHC Auto (RBC) [Mass/Vol]on 09-08-2021 MCHC (RBC) [Mass/Vol] 32.7 g/dL 32-36 [facility] Work Phone: No Panel Informationon 09-08 Estimated GFR (MDRD) Amer 93 mL/min >60 [facility] Work Phone: Comment on above: GFR Calc Estimated GFR (MDRD) Non-Af Amer 77 mL/min >60 [facility] Work Phone: Comment on above: Non- GFR Calc Platelets bldon 09-08-2021 Platelets (Bld) [#/Vol] 207 10*3/uL 150-450 [facility] Work Phone: Serum or plasma albumin lydia urement (mass/volume)on 09-08-2021 Albumin [Mass/Vol] 4.2 g/dL 3.2-5.[address] [facility] Work Phone: Serum or plasma albumin/glob ulin mass ratioon 09-08-2021 Albumin/Globulin [Mass ratio] 1.2 {ratio} 0.9-2.4 [facility] Work Phone: Serum or plasma calcium lydia urement (mass/volume)on 09-08-2021 Calcium [Mass/Vol] 9.4 mg/dL 8.5-10.[address] [facility] Work Phone: Serum or plasma cholesterol in HDL measurement (mass/volume)on 09-08-2021 Cholesterol in HDL [Mass/Vol] 85 mg/dL >40 [facility] Work Phone: Comment on above: The drugs N-Acetylcy steine and Metamizole may falsely depress this assay. Reference Range HDL <40 mg/dL Low HDL Cholesterol HDL >or= 60 mg/dL High HDL Cholesterol Serum or plasma cholesterol in VLDL measurement (mass/volume)on 09-08-2021 Cholesterol in VLDL [Mass/Vol] 18 mg/dL 5-40 [facility] Work Phone: Serum or plasma creatinine m easurement (mass/volume)on 09-08-2021 Creatinine [Mass/Vol] 0.83 mg/dL 0.55-1.02 [facility] Work Phone: Comment on above: The validity of the calculated GFR & GFRAA in patients over 70 years has not been determined. Clinical correlation is essential. Serum or plasma low density lipoprotein (LDL) cholesterol measurement (mass/volume)on 09-08-2021 Cholesterol in LDL [Mass/Vol] 170 mg/dL 0-130 [facility] Work Phone: Serum or plasma urea nitroge n measurement (mass/volume)on 09-08-2021 Urea nitrogen [Mass/Vol] 21 mg/dL 7-18 [facility] Work Phone: Thin prep Papanicolaou smear with manual screeningon 09-08-2021 Thin prep Papanicolaou smear with manual screening 20 U/L 15-37 [facility] Work Phone: Thin prep Papanicolaou smear with manual screening 5 5-15 [facility] Work Phone: Vital Signs Date Time Vital Sign Value Performing Clinician Adelaida sheriff 03-17-2023 15:55-0500 Body height 172.[address] Daphnie Asher Work Phone: [facility] 03-17-2023 15:55-0500 Body mass index (BMI) [Ratio] 22.2 kg/m2 Dr. Daphnie Asher Work Phone: [facility] 03-17-2023 15:55-0500 Body temperature 97.9 [degF] Dr. Daphnie Asher Work Phone: [facility] 03-17-2023 15:55-0500 Body weight 66.[address] Daphnie Asher Work Phone: [facility] 03-17-2023 15:55-0500 Diastolic blood pressure 82 mm[Hg] Dr. Daphnie Asher Work Phone: [facility] 03-17-2023 15:55-0500 Heart rate 98 /min Dr. Daphnie Asher Work Phone: [facility] 03-17-2023 15:55-0500 Respiratory rate 16 /min Dr. Daphnie Asher Work Phone: [facility] 03-17-2023 15:55-0500 SaO2% (BldA) [Mass fraction] 98 % Dr. Daphnie Asher Work Phone: [facility] 03-17-2023 15:55-0500 Systolic blood pressure 122 mm[Hg] Dr. Daphnie Asher Work Phone: [facility] 09-16-2022 15:02-0400 Body height 172.[address] Daphnie Asher Work Phone: [facility] 09-16-2022 15:02-0400 Body mass index (BMI) [Ratio] 21.9 kg/m2 Dr. Daphnie Asher Work Phone: [facility] 09-16-2022 15:02-0400 Body temperature 97.6 [degF] Dr. Daphnie Asher Work Phone: [facility] 09-16-2022 15:02-0400 Body weight 65.[address] Daphnie Asher Work Phone: [facility] 09-16-2022 15:02-0400 Diastolic blood pressure 82 mm[Hg] Dr. Daphnei Asher Work Phone: [facility] 09-16-2022 15:02-0400 Heart rate 74 /min Dr. Daphnie Asher Work Phone: [facility] 09-16-2022 15:02-0400 Respiratory rate 14 /min Dr. Daphnie Asher Work Phone: [facility] 09-16-2022 15:02-0400 SaO2% (BldA) [Mass fraction] 96 % Dr. Daphnie Asher Work Phone: [facility] 09-16-2022 15:02-0400 Systolic blood pressure 116 mm[Hg] Dr. Daphnie Asher Work Phone: [facility] 01-12-2022 08:39-0500 Body temperature 97.6 [degF] Dr. Daphnie Asher Work Phone: [facility] 01-12-2022 08:39-0500 Body weight 65.[address] Daphnie Asher Work Phone: [facility] 01-12-2022 08:39-0500 Diastolic blood pressure 84 mm[Hg] Dr. Daphnie Asher Work Phone: [facility] 01-12-2022 08:39-0500 Heart rate 84 /min Dr. Daphnie Asher Work Phone: [facility] 01-12-2022 08:39-0500 Respiratory rate 18 /min Dr. Daphnie Asher Work Phone: [facility] 01-12-2022 08:39-0500 SaO2% (BldA) [Mass fraction] 97 % Dr. Daphnie Asher Work Phone: [facility] 01-12-2022 08:39-0500 Systolic blood pressure 126 mm[Hg] Dr. Daphnie Asher Work Phone: [facility] 09-09-2021 13:27-0400 Body height 172.[address] Daphnie Asher Work Phone: [facility] Work Phone: 09-09-2021 13:27-0400 Body mass index (BMI) [Ratio] 20.9 kg/m2 Dr. Daphnie Asher Work Phone: [facility] Work Phone: 09-09-2021 13:27-0400 Body weight 62.[address] Daphnie Asher Work Phone: [facility] Work Phone: 09-08-2021 09:52-0400 Body mass index (BMI) [Ratio] 20.9 kg/m2 Dr. Daphnie Asher Work Phone: [facility] Work Phone: 09-08-2021 09:52-0400 Body temperature 97.2 [degF] Dr. Daphnie Asher Work Phone: [facility] Work Phone: 09-08-2021 09:52-0400 Body weight 62.[address] Daphnie Asher Work Phone: [facility] Work Phone: 09-08-2021 09:52-0400 Diastolic blood pressure 82 mm[Hg] Dr. Daphnie Asher Work Phone: [facility] Work Phone: 09-08-2021 09:52-0400 Heart rate 82 /min Dr. Daphnie Asher Work Phone: [facility] Work Phone: 09-08-2021 09:52-0400 Respiratory rate 14 /min Dr. Daphnie Asher Work Phone: [facility] Work Phone: 09-08-2021 09:52-0400 SaO2% (BldA) [Mass fraction] 98 % Dr. Daphnie Asher Work Phone: [facility] Work Phone: 09-08-2021 09:52-0400 Systolic blood pressure 118 mm[Hg] Dr. Daphnie Asher Work Phone: [facility] Work Phone: Encounters Encounter Date Encounter Type Care Provider Facility Start: 09-25-2024 Encounter for genera l adult medical examination without abnormal findings Daphnie Asher [facility] Start: 09-25-2024 ambulatory Daphnie Cerratoi ty:[facility] Start: 03-29-2024 End: 03-29-2024 ambulatory [facility] Facility:[facility] Start: 12-30-2023 End: 12-30-2023 ambulatory [facility] Facility:[facility] Start: 11-23-2023 Encounter for genera l adult medical examination without abnormal findings Daphnie Asher [facility] Start: 10-04-2023 End: 10-04-2023 ambulatory Daphnie Asher Facility:[facility] Start: 10-04-2023 End: 10-04-2023 ambulatory Daphnie Asher Facility:[facility] Start: 03-24-2023 End: 03-24-[address] Daphnie Asher Work Phone: [facility] Work Phone: Start: 03-24-2023 End: 03-24-[address] Daphnie Asher Work Phone: [facility] Work Phone: Start: 03-17-2023 End: 03-17-[address] Daphnie Asher Work Phone: [facility] Work Phone: Start: 09-16-2022 End: 09-16-[address] Daphnie Asher Work Phone: [facility] Work Phone: Start: 09-16-2022 End: 09-16-2022 Encounter for general adult medical examination without abnormal findings Dr. Daphnie Asher Work Phone: [facility] Start: 09-16-2022 End: 09-16-[address] Daphnie Asher Work Phone: [facility] Work Phone: Start: 03-18-2022 End: 03-18-[address] Daphnie Asher Work Phone: [facility] Work Phone: Start: 03-18-2022 End: 03-18-[address] Daphnie Asher Work Phone: [facility] Start: 01-12-2022 End: 01-12-[address] Daphnie Asher Work Phone: [facility] Work Phone: Start: 01-12-2022 End: 01-12-[address] Daphnie Asher Work Phone: [facility] Start: 01-09-2022 End: 01-09-[address] Daphnie Asher Work Phone: [facility] Work Phone: Start: 01-09-2022 End: 01-09-[address] Daphnie Asher Work Phone: [facility] [place] Start: 09-09-2021 Non-patient / Non-visit Dr. Lynn Asher Work Phone: [facility] Start: 09-08-[address] Daphnie Asher Work Phone: [facility] Start: 09-08-2021 End: 09-08-2021 Encounter for general adult medical examination without abnormal findings Dr. Daphnie Asher Work Phone: [facility] Start: 09-08-2021 End: 09-08-[address] Daphnie Asher Work Phone: [facility] Start: 02-04-[address] Daphnie Asher Work Phone: [facility] Procedures Date Procedure Procedure Detail Performing Clinician Start: 03-24-2023 Screening mammography Faustino Asher Work Phone: Start: 03-18-2022 Screening mammography Faustino Asher Work Phone: Start: 03-18-[address] Daphnie Asher Work Phone: Plan of Treatment Date Care Activity Detail Author Start: 03-17-2023 Patient referral [facility] Work Phone: Lipid 1996 panel - S karishma or Plasma [facility] Patient referral [facility] Work Phone: Payers Date Payer Category Payer Private Health Insurance [id number] 2023 Self-pay [id number] 2013 Unknown [id number] Unknown [id number] [id number] Unknown [id number] [id number] Unknown [id number] [id number] Unknown [id number] [id number] Unknown [id number] [id number] [id number] Unknown [id number] [id number] [id number] Social History Date Type Detail Facility Start: 09-08-2021 End: 03-17-2023 Tobacco smoking status NHIS Unknown if ever smoked [facility] Start: 1965 Sex Assigned At Female [facility] Evaluation note Note Date & Type Note Facility Evaluation note Diagnosis Onset Date Colon cancer screening acute [facility] Work Phone: Evaluation note Note Date & Type Note Facility Evaluation note Diagnosis Onset Date Hyperlipidemia chronic [facility] Work Phone: Evaluation note Note Date & Type Note Facility Evaluation note Diagnosis Onset Date [facility] health care ac[facility] Work Phone: Evaluation note Note Date & Type Note Facility Evaluation note Diagnosis Onset Date Headache chronic Hyperlipidemia [facility] Work Phone: Chief Complaint and Reason for Visit Chief Complaint 8 M FU Amb Documentation Reason for Visit Colon cancer screeni ng Preventative health care Chief Complaint FOLLOW UP Reason for Visit Hyperlipidemia Chief Complaint FOLLOW UP SCREENING Reason for Visit Hyperlipidemia Chief Complaint 6 M FU Reason for Visit Preventative health care Chief Complaint 6 m fu screening Reason for Visit Headache Hyperlipidemia Summary Purpose Family History No Family History Records Found Advance Directives No Advanced Directives Records Found Additional Source Comments Goals (unrecognized section and content) Goals may be documented in a n alternate sectionGoals may be documented in an alternate sectionGoals may be documented in an alternate sectionGoals may be documented in an alternate sectionGoals may be documented in an alternate sectionGoals may be documented in an alternate section Care Teams (unrecognized sec tion and content) Team Status: Active Member Role Status Dates Dr. Adis Narvaez MD Family Provider Active Dr. Daphnie Asher MD Primary Care Provider Active Team Status: Inactive Member Role Status Dates Dr. Daphnie Asher MD Primary Care Jori flores Attending Provider, Referring Provider Active Team Status: Inactive Member Role Status Dates Dr. Daphnie Asher MD Primary Care Provider Active Dr. Bianca Narvaez DO Attending Provider Active Team Status: Inactive Member Role Status Dates Dr. Daphnie Asher MD Primary Care Provider, Atten ding Provider Active INFORMATION SOURCE (unrecogn ized section and content) DATE CREATED AUTHOR 09/25/2024 [facility] FOR RECORDS PERTAINING TO PATIENTS WHO ARE OR HAVE BEEN ENROLLED IN A CHEMICAL DEPENDENCY/SUBSTANCEABUSE PROGRAM, SOME INFORMATION MAY BE OMITTED. This clinical summary was aggregated from multiple sources. Caution should be exercised in using it in the provision of clinical care. This summary normalizes information from multiple sources, and as a consequence, information in this document may materially change the coding, format and clinical context of patient data. In addition, data may be omitted in some cases. CLINICAL DECISIONS SHOULD BE BASED ON THE PRIMARY CLINICAL RECORDS. [employer]. provides no warranty or guarantee of the accuracy or completeness of information in this document.
== END | disposition home or self-care (01) ==
LOC: BIMLAB 10:07
PROVIDERS: PCP Internal Medicine; Referring Provider Internal Medicine; Visit Provider Internal Medicine
DX: Z00.00 Encounter for general adult medical examination without abnormal findings (principal)
CPT/HCPCS: 36415; 80053; 80061; 85025

== ENCOUNTER 2025-01-08 06:23 | Day surgery (SDC) | payer OTHER, SELFPAY ==
[2025-01-08] VITALS (7 sets, daily range): BP systolic 96–120; BP diastolic 60–72; PULSE 64–82; RESP 16–17; TEMP 36.2–36.8; O2SAT 100; BMI 21.4
--- OUTSIDE RECORDS SUMMARY | 2025-01-08 06:27 | XMS RPT_ITS | CCD ---
Author Organization [facility] Care Team Providers Care Legal Biller Name Role Phone Dr. Daphnie Asher Primary Care Provider [phone] [place], Dr. Eller Attending Provider [phone] [place], Dr. Eller Referring Provider [phone] Cee Cox Attending Provider Unavailable Lakeshia, Dr. Eller Primary Care Provider [phone]) [place], Dr. Eller Attending Provider [phone] Dr. Daphnie Asher Referring Provider [phone] Dr. Daphnie Asher Primary Care Provider [phone] [phone]) Dr. Daphnie Asher Attending Provider [phone] Dr. Daphnie Asher Referring Provider [phone] [place], Dr. Eller Primary Care Provider 1(33 [phone]) Dr. Daphnie Asher Attending Provider [phone])[phone] Dr. Dpahnie Asher Referring Provider [phone])2 Dr. Daphnie Asher MD Primary Care Provider Dr. Daphnie Asher MD Attending Provider [phone] [phone]) Dr. Daphnie Asher MD Referring Provider [phone] [phone]) Daphnie Asher Attending Unavailable Daphnie Asher Primary Care Unavailable Daphnie Asher Referring Unavailable Daphnie Asher Primary Care Unavailable Emily Turner Referring Unavailable Emily Turner Attending Unavailable Jerod Echeverria Attending Unavailable Daphnie Asher Primary Care Unavailable Daphnie Asher Referring Unavailable Pilloseamus Daphnie Attending Unavailable [place] Daphnie Primary Care Unavailable Daphnie Asher Referring Unavailable Allergies Allergy Classification Reported Allergen(s) Allergy Type Date of Onset Reaction(s) Facility (8 sources) venom-honey bee Allergy to substance 09-09-2021 Swollen [facility] (1 source) venom-honey bee Drug allergy (disorder) 01-03-2025 [facility] Repository Medications Current Medications Medication Drug Class(es) Dates Sig (Normalized) Sig (Original) acetaminophen 500 mg / diphenhydrAMINE hydrochloride 25 mg oral tablet (7 sources) Histamine-1 Receptor Antagonist Start: 01-12-2022 Diphenhydramine-A cetaminophen (Tylenol Pm Extra Strength) 25-500 mg tablet Active 1 {tbl} PO AT BEDTIME as needed January 12, 2022 1:00am inulin 2000 mg chewable tablet (7 sources) Start: 01-12-2022 Inulin (Fiber Gummies) 2 gram tablet,chewable Active g PO January 12, 2022 1:00am L.Acidoph, Paracasei,B. Lactis (Digestive Advantage Advanced) 10 billion cell capsule (5 sources) Start: 01-12-2022 L.Acidoph, Paracasei,B. Lactis (Digestive Advantage Advanced) 10 billion cell capsule Active CELL PO January 12, 2022 1:00am Start: 01-12-2022 L.Acidoph, Par acasei,B. Lactis (Digestive Advantage Advanced) 10 billion cell capsule Active CELL PO January 12, 2022 12:00am Scopolamine Base 1 mg over 3 days patch 3 day (2 sources) Start: 05-24-2024 Scopolamine Ba se 1 mg over 3 days patch 3 day Active 1 NMA TD Every 3 Days as needed for motion sickness 4 2 May 24, 2024 12:00am Completed/Discontinued Medications Medication Drug Class(es) Dates Sig (Normalized) Sig (Original) amitriptyline hydrochloride 25 mg oral tablet (8 sources) Tricyclic Antidepressant Start: 02-04-2021 End: 09-08-2021 take 1 tablet by mouth at bedtime Amitriptyline 25 mg tablet Discontinued 25 mg PO AT BEDTIME 30 1 February 04, 2021 1:00am September 08, 2021 10:24am calcium ascorbate 500 mg oral tablet (8 sources) Start: 02-04-2021 End: 01-12-2022 take 1 tablet by mouth once daily Ascorbate Calcium (Vitamin C) 500 mg tablet Discontinued 500 mg PO DAILY February 04, 2021 1:00am January 12, 2022 9:30am cholecalciferol 0.025 mg oral tablet (8 sources) Vitamin D Start: 02-04-2021 End: 09-16-2022 take 1 tablet by mouth once daily Cholecalciferol (Vitamin D3) 25 mcg (1,000 unit) tablet Discontinued 25 ug PO DAILY February 04, 2021 1:00am September 16, 2022 3:01pm Diphenhydramine-Acet aminophen (6 sources) Start: 02-04-2021 End: 02-04-2021 Diphenhydramine-Wilfredo taminophen Discontinued ML PO February 04, 2021 12:00am February 04, 2021 3:40pm Start: 02-04-2021 End: 02-04-2021 Diphenhydramine-Acetaminophe n Discontinued ML PO February 04, 2021 1:00am February 04, 2021 4:40pm Diphenhydramine-Acetaminophe n 25-500 mg-mg/mL solution (2 sources) Start: 02-04-2021 End: 02-04-2021 Diphenhydramine-Acetaminophe n 25-500 mg-mg/mL solution Discontinued mL PO February 04, 2021 1:00am February 04, 2021 4:40pm L.Acidoph,Paracasei,B.Animal is (Digestive Advantage Advanced) 10 billion cell capsule (2 sources) Start: 01-12-2022 End: 12-30-2023 L.Acidoph,Paracasei,B.Animal is (Digestive Advantage Advanced) 10 billion cell capsule Discontinued NMA PO January 12, 2022 1:00am December 30, 2023 9:04am Forbes 9-Nfo-Qns-Fish Oil (Fi sh Oil) 1,200 (144-216) mg capsule (7 sources) Start: 01-12-2022 End: 09-16-2022 Forbes 5-Orx-Aej-Fish Oil (Fi sh Oil) 1,200 (144-216) mg capsule Discontinued NMA PO January 12, 2022 1:00am September 16, 2022 3:01pm 2400/720mg Start: 01-12-2022 End: 09-16-2022 Forbes 6-Tnh-Quo-Fish Oil (Fi sh Oil) 1,200 (144-216) mg capsule Discontinued CAP PO January 12, 2022 12:00am September 16, 2022 2:01pm 2400/720mg Start: 01-12-2022 End: 09-16-2022 Forbes 4-Ety-Jte-Fish Oil (Fi sh Oil) 1,200 (144-216) mg capsule Discontinued CAP PO January 12, 2022 1:00am September 16, 2022 3:01pm 2400/720mg Start: 01-12-2022 Forbes 3-Dha-Ep a-Fish Oil (Fish Oil) 1,200 (144-216) mg capsule Active CAP PO January 12, 2022 12:00am 2400/720mg rosuvastatin calcium 20 mg oral tablet (20 sources) HMG-CoA Reductase Inhibitor Start: 09-16-2021 End: 08-31-2024 take 1 tablet by mouth once daily Rosuvastatin 20 mg tablet Discontinued 20 mg PO DAILY 90 0 August 21, 2024 10:11am August 31, 2024 1:28pm 72 hr scopolamine 0.0139 mg/hr transdermal system (8 sources) Anticholinergic Start: 08-14-2021 End: 09-08-2021 Scopolamine Base 1 mg over 3 days patch 3 day Discontinued 1 NMA TD Every 3 Days as needed for motion sickness 4 0 August 14, 2021 12:00am September 08, 2021 9:50am Start: 08-14-2021 End: 09-08-2021 Scopolamine Base Discontinue d 1 PATCH TD Every 3 Days 4 August 13, 2021 11:00pm September 08, 2021 8:50am traZODone hydrochloride 50 mg oral tablet (4 sources) Serotonin Reuptake Inhibitor Start: 09-16-2022 End: 10-04-2023 take 1 tablet by mouth at bedtime as needed Trazodone 50 mg tablet Discontinued 50 mg PO AT BEDTIME as needed for insomnia 60 1 September 16, 2022 12:00am October 04, 2023 10:02am Problems Active Problems Problem Classification Problem Date Documented Da te Episodic/Chronic Disorders of lipid metabolism (14 sources) Hyperlipidemia; Translations: [Hyperlipidemia, unspecified] Chronic Headache; including migraine (9 sources) Headache; Translations: [Headache] 02-04-2021 Episodic Other connective tissue disease (4 sources) Pain in toe; Translations: [Pain in unspecified toe(s)] 09-25-2024 Episodic Unclassified (2 sources) Encounter for screening for malignant neoplasm of colon Unclassified (4 sources) Z12.11 - Encounter for screening for malignant neoplasm of colon Past or Other Problems Problem Classification Problem Date Documented Da te Episodic/Chronic Other screening for suspected conditions (not mental disorders or infectious disease) (13 sources) Patient encounter status; Translations: [Encounter for screening for malignant neoplasm of colon] Onset: 04-18-2024 Episodic Results Test Name Value Interpretation Reference Range Facility Absolute lymphocyte countOrd ered By: Daphnie Asher on 09-25-2024 Lymphocytes Auto (Unsp spec) [#/Vol] 1.35 10*3/uL 0.83-4.51 [facility] Absolute neutrophil countOrd ered By: Daphnie Asher on 09-25-2024 Neutrophils (Bld) [#/Vol] 3.0 10*3/uL 2.0-7.7 [facility] Anion gap in Serum or Plasma Ordered By: Daphnie Asher on 09-25-2024 Anion gap [Moles/Vol] 11 mmol/L 5-15 [facility] Automated lymphocyte count a s percentage of total leukocytesOrdered By: Daphnie Asher on 09-25-2024 Lymphocytes/100 WBC Auto (Unsp spec) 28.9 % 19-41 [facility] BUN/creatinine ratioOrdered By: Daphnie Asher on 09-25-2024 Urea nitrogen/Creatinine [Mass ratio] 18.9 mg/mg 10-20 [facility] Basophil percentageOrdered B y: Daphnie Asher on 09-25-2024 Basophils/100 WBC (Bld) 0.6 % 0-1 [facility] Bilirubin, totalOrdered By: Daphnie Asher on 09-25-2024 Bilirubin [Mass/Vol] 0.74 mg/dL 0.00-1.30 [facility] CBC W/Diff, Automatedon 08-30 Absolute Lymph 1.35 X10 3/uL Normal 0.83-4.51 [facility] Comment on above: Performed By: #### L 500.4050, L500.4100, L100.0100 #### [facility] [address] [place], [address] Absolute Neut 3.0 X10 3/uL Normal 2.0-7.7 [facility] Comment on above: Performed By: #### L 500.4050, L500.4100, L100.0100 #### [facility] [address] [place], [address] Basophils/100 WBC (Bld) 0.6 % Normal 0-1 [facility] Comment on above: Performed By: #### L 500.4050, L500.4100, L100.0100 #### [facility] [address] [place], [address] Eosinophils/100 WBC (Bld) 0.4 % Normal 0-5 [facility] Comment on above: Performed By: #### L 500.4050, L500.4100, L100.0100 #### [facility] [address] [place], [address] Erythrocyte distribution width (RBC) [Ratio] 11.6 % Normal 11.6-14.6 [facility] Comment on above: Performed By: #### L 500.4050, L500.4100, L100.0100 #### [facility] [address] [place], [address] Hematocrit (Bld) [Volume fraction] 44.8 % Normal 37-47 [facility] Comment on above: Performed By: #### L 500.4050, L500.4100, L100.0100 #### [facility] [address] [place], [address] Hemoglobin (Bld) [Mass/Vol] 14.7 g/dL Normal 12.0-15.0 [facility] Comment on above: Performed By: #### L 500.4050, L500.4100, L100.0100 #### [facility] [address] [place], [address] IG% 0.200 Normal 0.0-0.9 [facility] Comment on above: Result Comment: IG% - Immature Granulocytes (promyelocytes, myelocytes and metamyelocytes) > 1% indicates that a LEFT SHIFT is Present. Performed By: #### L 500.4050, L500.4100, L100.0100 #### [facility] [address] [place], [address] Lymphocytes/100 WBC (Bld) 28.9 % Normal 19-41 [facility] Comment on above: Performed By: #### L 500.4050, L500.4100, L100.0100 #### [facility] [address] [place], [address] MCH (RBC) [Entitic mass] 31.2 pg Normal 27.0-32.0 [facility] Comment on above: Performed By: #### L 500.4050, L500.4100, L100.0100 #### [facility] [address] [place], [address] MCHC (RBC) [Mass/Vol] 32.8 g/dL Normal 32-36 [facility] Comment on above: Performed By: #### L 500.4050, L500.4100, L100.0100 #### [facility] [address] [place], [address] MCV (RBC) [Entitic vol] 95.1 fL Normal 81-99 [facility] Comment on above: Performed By: #### L 500.4050, L500.4100, L100.0100 #### [facility] [address] [place], [address] Monocytes/100 WBC (Bld) 5.4 % Normal 0-10 [facility] Comment on above: Performed By: #### L 500.4050, L500.4100, L100.0100 #### [facility] [address] [place], [address] Neutrophils/100 WBC (Bld) 64.5 % Normal 47-70 [facility] Comment on above: Performed By: #### L 500.4050, L500.4100, L100.0100 #### [facility] [address] [place], [address] Nucleated RBC (Bld) [#/Vol] 0 10*3/uL Normal 0-5 [facility] Comment on above: Performed By: #### L 500.4050, L500.4100, L100.0100 #### [facility] [address] [place], [address] Platelet mean volume (Bld) [Entitic vol] 10.9 fL Normal 6.2-12.0 [facility] Comment on above: Performed By: #### L 500.4050, L500.4100, L100.0100 #### [facility] [address] [place], [address] Platelets (Bld) [#/Vol] 206 10*3/uL Normal 150-450 [facility] Comment on above: Performed By: #### L 500.4050, L500.4100, L100.0100 #### [facility] [address] [place], [address] RBC (Bld) [#/Vol] 4.71 10*6/uL Normal 4.2-5.4 [facility] Comment on above: Performed By: #### L 500.4050, L500.4100, L100.0100 #### [facility] [address] [place], [address] RDW SD 40.7 fl Normal 35.1-43.9 [facility] Comment on above: Performed By: #### L 500.4050, L500.4100, L100.0100 #### [facility] [address] [place], [address] WBC (Bld) [#/Vol] 4.7 10*3/uL Normal 4.4-11.0 [facility] Comment on above: Performed By: #### L 500.4050, L500.4100, L100.0100 #### [facility] [address] [place], [address] Calculated very low density lipoprotein (VLDL) cholesterol measurementOrdered By: Daphnie Asher on 09-25-2024 Calculated very low density lipoprotein (VLDL) cholesterol measurement 8 mg/dL 5-40 [facility] Carbon dioxide, total [Moles /volume] in Central venous bloodOrdered By: Daphnie Asher on 09-25-2024 CO2 [Moles/Vol] 25.9 mmol/L 21.0-32.0 [facility] Chloride assayOrdered By: Lynn Asher on 09-25-2024 Chloride [Moles/Vol] 104 mmol/L 98-108 [facility] Comprehensive Metabolic Prof ilon 09-25-2024 Albumin [Mass/Vol] 4.6 g/dL Normal 3.5-5.0 [facility] Comment on above: Performed By: #### L 500.4050, L500.4100, L100.0100 #### [facility] [address] [place], [address] Albumin/Globulin [Mass ratio] 1.9 {ratio} Normal 0.9-2.4 [facility] Comment on above: Performed By: #### L 500.4050, L500.4100, L100.0100 #### [facility] [address] [place], [address] ALK PHOS 56 U/L Normal 35-104 [facility] Comment on above: Performed By: #### L 500.4050, L500.4100, L100.0100 #### [facility] [address] [place], [address] ALT [Catalytic activity/Vol] 19 U/L Normal <=34 [facility] Comment on above: Performed By: #### L 500.4050, L500.4100, L100.0100 #### [facility] [address] [place], [address] AST [Catalytic activity/Vol] 21 U/L Normal <=31 [facility] Comment on above: Performed By: #### L 500.4050, L500.4100, L100.0100 #### [facility] [address] [place], [address] Bilirubin [Mass/Vol] 0.74 mg/dL Normal 0.00-1.30 [facility] Comment on above: Performed By: #### L 500.4050, L500.4100, L100.0100 #### [facility] [address] [place], [address] BUN/CRE 18.9 RATIO Normal 10-20 [facility] Comment on above: Performed By: #### L 500.4050, L500.4100, L100.0100 #### [facility] [address] [place], [address] Calcium [Mass/Vol] 9.8 mg/dL Normal 7.6-11.0 [facility] Comment on above: Performed By: #### L 500.4050, L500.4100, L100.0100 #### [facility] [address] [place], [address] Chloride [Moles/Vol] 104 mmol/L Normal 98-108 [facility] Comment on above: Performed By: #### L 500.4050, L500.4100, L100.0100 #### [facility] [address] [place], [address] CO2 [Moles/Vol] 25.9 mmol/L Normal 21.0-32.0 [facility] Comment on above: Performed By: #### L 500.4050, L500.4100, L100.0100 #### [facility] [address] [place], [address] Creatinine [Mass/Vol] 0.77 mg/dL Normal 0.70-1.20 [facility] Comment on above: Performed By: #### L 500.4050, L500.4100, L100.0100 #### [facility] [address] [place], [address] GAP 11 Normal 5-15 [facility] Comment on above: Performed By: #### L 500.4050, L500.4100, L100.0100 #### [facility] [address] [place], [address] GFR/1.73 sq M.predicted among non-blacks MDRD (S/P/Bld) [Vol rate/Area] 90 mL/min/{1.73_m2} Normal >60 [facility] Comment on above: Result Comment: mL/m in/1.73m2 CKD-EPI Creatinine Equation (2020) Performed By: #### L 500.4050, L500.4100, L100.0100 #### [facility] [address] [place], [address] Globulin (S) [Mass/Vol] 2.5 g/dL Normal 2.2-4.2 [facility] Comment on above: Performed By: #### L 500.4050, L500.4100, L100.0100 #### [facility] [address] [place], [address] Glucose [Mass/Vol] 91 mg/dL Normal 70-99 [facility] Comment on above: Performed By: #### L 500.4050, L500.4100, L100.0100 #### [facility] [address] [place], [address] Potassium [Moles/Vol] 4.9 mmol/L Normal 3.3-5.1 [facility] Comment on above: Performed By: #### L 500.4050, L500.4100, L100.0100 #### [facility] [address] [place], [address] Sodium [Moles/Vol] 141 mmol/L Normal 133-145 [facility] Comment on above: Performed By: #### L 500.4050, L500.4100, L100.0100 #### [facility] [address] [place], [address] T PROT 7.1 g/dL Normal 5.9-8.4 [facility] Comment on above: Performed By: #### L 500.4050, L500.4100, L100.0100 #### [facility] [address] [place], [address] Urea nitrogen [Mass/Vol] 15 mg/dL Normal 4-19 [facility] Comment on above: Performed By: #### L 500.4050, L500.4100, L100.0100 #### [facility] [address] [place], [address] Eosinophil percentageOrdered By: Daphnie Asher on 09-25-2024 Eosinophils/100 WBC (Bld) 0.4 % 0-5 [facility] Erythrocyte distribution wid th ratioOrdered By: Daphnie Asher on 09-25-2024 Erythrocyte distribution width (RBC) [Ratio] 11.6 % 11.6-14.6 [facility] Erythrocyte distribution wid th standard deviationOrdered By: Daphnie Asher on 09-25-2024 Erythrocyte distribution width (RBC) [Ratio] 40.7 fl 35.1-43.9 [facility] Glomerular filtration rate ( GFR) estimation/1.73 sq m using serum, plasma, or whole bOrdered By: Daphnie Asher on 09-25-2024 GFR/1.73 sq M.predicted among non-blacks MDRD (S/P/Bld) [Vol rate/Area] 90 mL/min/{1.73_m2} >60 [facility] Comment on above: mL/min/1.73m2 CKD-EP I Creatinine Equation (2020) Hematocrit Auto (Bld) [Volum e fraction]Ordered By: Daphnie Asher on 09-25-2024 Hematocrit (Bld) [Volume fraction] 44.8 % 37-47 [facility] Hemoglobin measurementOrdere d By: Daphnie Asher on 09-25-2024 Hemoglobin (Bld) [Mass/Vol] 14.7 g/dL 12.0-15.0 [facility] Immature granulocytes/100 WB C Auto (Bld)Ordered By: Daphnie Asher on 09-25-2024 Immature granulocytes/100 WBC (Bld) 0.200 % 0.0-0.9 [facility] Comment on above: IG% - Immature Granu locytes (promyelocytes, myelocytes and metamyelocytes) > 1% indicates that a LEFT SHIFT is Present. Internal Medicine Office Vis beatriz 09-25-2024 Internal Medicine Office Visit [facility] [address] [place], [place] [address] OFFICE VISIT Date of Service: 09/25/24 MR#: [id number] Acct: [id number] Name: JOSE ROACH Rep #: [id number] : [id number] Provider: Dr. Daphnie raymond MD Age/Sex: 58/F Location: [facility] [place] Status: Signed Intake Vital Signs 12/30/23 09:03 09/25/24 09:29 Height 5 ft 8 in 5 ft 8 in Weight: 139 lb BMI 21.1 BP 110/72 Blood Pressure Location Rt brachial Position Sitting Respiration 16 Pulse 80 Pulse Source Monitor Temp 97.3 F L Temp Source Temporal Pulse Oximetry (%) 96 Oxygen Delivery Method room air Intake Visit Reasons: CHK UP Chief Complaint: annual Body Masker Required: No Accompanied by: Self Is patient in pain?: No Allergies venom-honey bee Allergy (Intermediate, Verified 09/25/24 09:30) Swollen PFSH Medical History (Updated 09/25/24 @ 13:[address] Daphnie Asher MD) Toe pain Preventative health care Health care maintenance Headache Hyperlipidemia Colon cancer screening Family History Father Cancer Grandmother Breast cancer, Onset Age: 40 Social History adopted: No number of children: 3 current occupational status: retired sexually active: No Smoking Status: Never smoker alcohol intake: never substance use type: does not use rafael/orthodoxy: Yarsani seatbelt use: always do you feel safe at home: Yes additional social history: Female Reproductive History Menstrual Date of menopause: 03/01/18 (Greater than 5 years ago. ) HPI HPI Chief Complaint: annual Details: JOSE ROACH, is a 58-year-old female presenting for her yearly visit. Has been relatively stable since her last visit. The patient sustained a toe pain after dropping a box on it while shopping. She initially managed the injury conservatively and wearing supportive shoes. The bruising has subsided, and she reports improvement in symptoms. The patient experienced weight gain, reaching up to 144 pounds, which she attributes to lifestyle changes. She has since lost a few pounds and feels better overall. Follows up closely with [facility], mammogram is up-to-date. Last colon cancer screening was via [facility] 3 years ago. Now open still colonoscopy. Follows up closely with dermatology. No tobacco or alcohol abuse. Stays quite active engaging in Spin exercises at least twice weekly Attestation: Documentation on this patient encounter was supported using ambient scribe technology/ voice AI technology. The patient consented to recording for the purpose of documenting the encounter. Provider reviewed content of the generated note prior to signature. ROS Const Constitutional: No body ache, excessive sweating, fatigue, fever(s), frequent falls, headache(s), snoring, weakness, weight change, sleep problems or change in appetite Eyes Eyes: No blurry vision, change in vision, vision loss, dry eyes, eye pain or Light sensitivity ENT ENT: [...] habits, constipation, cramping, diarrhea, nausea/dyspepsia or vomiting Genitourinary-Female : No burning urination, painful urination, urinary incontinence, urinary frequency, blood in urine, abnormal periods or pelvic pain Musc Musculoskeletal: No abnormal gait, joint pain, back pain, limited range of motion, neck pain, numbness, stiffness, tingling or Arthritis Skin Skin: No dry skin, redness, lesions, itchy eyes, rash or wounds Neuro Neurology: No abnormal gait, abnormal hearing, abnormal speech, behavioral changes, dizziness, weakness, frequent falls, headache(s), memory loss, numbness or tingling Psych Psychiatric: No anxiety, No behavioral changes, No change in appetite, No depression, No memory loss and No Thoughts of harming yourself/Others Endo Endocrine: No cold intolerance, excessive sweating, fatigue, flushing, heat intolerance, increased thirst/drinking, increased hunger or weight change Aller/Imm Allergy/Immunologic: No itchy eyes, seasonal allergy symptoms, hives or wheezing Thomas/Lymp Hematologic/Lymphati c: No easy bleeding, easy bruising or enlarged lymph nodes Exam Const General: cooperative, healthy appearing, comfortable and no acute distress Orientation: alert, awake and oriented x3 HENMT Head: normal to inspection, normocephalic and atrauma (more content not included)... Normal [facility] LDL calc ser/plasOrdered By: Daphnie Asher on 09-25-2024 Cholesterol in LDL [Mass/Vol] 67 mg/dL [facility] Comment on above: Ajsivulibg=[phone] m g/dL & Higher Twuc=785 mg/dL or greaterFriedwald Equation for LDL-C Laboratory - Chemistry and C hemistry - challengeOrdered By: Daphnie Asher on 09-25-2024 AST [Catalytic activity/Vol] 21 U/L <32 [facility] Lipid Profileon 09-25-2024 CHOL:HDL 1.89 Normal [facility] Comment on above: Performed By: #### L 500.4050, L500.4100, L100.0100 #### [facility] [address] [place], [address] Cholesterol [Mass/Vol] 161 mg/dL Normal <=200 [facility] Comment on above: Result Comment: Chol esterol level, Desirable <200 mg/dL Borderline high cholesterol 200-239 mg/dL High cholesterol >=240 mg/dL Recommendations of the NCEP Adult Treatment Panel for the following risk-cutoff thresholds for the [place] population. Performed By: #### L 500.4050, L500.4100, L100.0100 #### [facility] [address] [place], [address] Cholesterol in HDL [Mass/Vol] 85 mg/dL Normal [facility] Comment on above: Result Comment: Barb onal Cholesterol Education Program (NCEP) guidelines: <40 mg/dL: Low HDL-cholesterol (major risk factor for CHD) >= 60 mg/dL: High HDL-cholesterol (negative risk factor for CHD) HDL-cholesterol is affected by a number of factors, e.g. smoking, exercise, hormones, sex and age. Performed By: #### L 500.4050, L500.4100, L100.0100 #### [facility] [address] [place], [address] Cholesterol in LDL [Mass/Vol] 67 mg/dL Normal [facility] Comment on above: Result Comment: Bord ixntsq=245-982 mg/dL Higher Qwnl=565 mg/dL or greater Friedwald Equation for LDL-C Performed By: #### L 500.4050, L500.4100, L100.0100 #### [facility] [address] [place], [address] Cholesterol in VLDL [Mass/Vol] 8 mg/dL Normal 5-40 [facility] Comment on above: Performed By: #### L 500.4050, L500.4100, L100.0100 #### [facility] [address] [place], [address] Triglyceride [Mass/Vol] 42 mg/dL Normal [facility] Comment on above: Result Comment: The drugs N-Acetylcysteine and Metamizole may falsely depress this assay. Normal range: <150 mg/dL Borderline High: 150-199 mg/dL High: 200-499 mg/dL Very High: >500 mg/dL Performed By: #### L 500.4050, L500.4100, L100.0100 #### [facility] [address] [place], [address] MCV (mean corpuscular volume ) determinationOrdered By: Daphnie Asher on 09-25-2024 MCV (RBC) [Entitic vol] 95.1 fL 81-99 [facility] Mean corpuscular hemoglobin (MCH) determinationOrdered By: Daphnie Asher on 09-25-2024 MCH (RBC) [Entitic mass] 31.2 pg 27.0-32.0 [facility] Mean corpuscular hemoglobin concentration (MCHC) determinationOrdered By: Daphnie Asher on 09-25-2024 MCHC (RBC) [Mass/Vol] 32.8 g/dL 32-36 [facility] Mean platelet volume determi nationOrdered By: Daphnie Asher on 09-25-2024 Platelet mean volume (Bld) [Entitic vol] 10.9 fL 6.2-12.0 [facility] Monocyte percentageOrdered B y: Daphnie Asher on 09-25-2024 Monocytes/100 WBC (Bld) 5.4 % 0-10 [facility] Neutrophil percentageOrdered By: Daphnie Asher on 09-25-2024 Neutrophils/100 WBC (Bld) 64.5 % 47-70 [facility] Nucleated red blood cell per centageOrdered By: Daphnie Asher on 09-25-2024 Nucleated RBC/100 WBC (Bld) [Ratio] 0 % 0-5 [facility] Platelet countOrdered By: Lynn Asher on 09-25-2024 Platelets (Bld) [#/Vol] 206 10*3/uL 150-450 [facility] Potassium measurement (mass/ volume)Ordered By: Daphnie Asher on 09-25-2024 Potassium (Unsp spec) [Mass/Vol] 4.9 mmol/L 3.3-5.1 [facility] RBC Auto (Bld) [#/Vol]Ordere d By: Daphnie Asher on 09-25-2024 RBC (Bld) [#/Vol] 4.71 10*6/uL 4.2-5.4 [facility] Screening total cholesterol/ high density lipoprotein (HDL) cholesterol ratioOrdered By: Daphnie Asher on 09-25-2024 Cholesterol.total/Choles terol in HDL [Mass ratio] 1.89 {ratio} [facility] Serum creatinine measurement (mass/volume)Ordered By: Daphnie Asher on 09-25-2024 Creatinine [Mass/Vol] 0.77 mg/dL 0.70-1.20 [facility] Serum globulin measurementOr dered By: Daphnie Asher on 09-25-2024 Globulin (S) [Mass/Vol] 2.5 g/dL 2.2-4.2 [facility] Serum glucose measurement (m ass/volume)Ordered By: Daphnie Asher on 09-25-2024 Glucose [Mass/Vol] 91 mg/dL 70-99 [facility] Serum or plasma alanine stover otransferase (ALT) measurementOrdered By: Daphnie Asher on 09-25-2024 ALT [Catalytic activity/Vol] 19 U/L <35 [facility] Serum or plasma albumin lydia urement (mass/volume)Ordered By: Daphnie Asher on 09-25-2024 Albumin [Mass/Vol] 4.6 g/dL 3.5-5.0 [facility] Serum or plasma albumin/glob ulin mass ratioOrdered By: Daphnie Asher 09-25-2024 Albumin/Globulin [Mass ratio] 1.9 {ratio} 0.9-2.4 [facility] Serum or plasma alkaline kevin sphatase measurementOrdered By: Daphnie Asher 09-25-2024 ALP [Catalytic activity/Vol] 56 U/L 35-104 [facility] Serum or plasma calcium lydia urement (mass/volume)Ordered By: Daphnie Asher 09-25-2024 Calcium [Mass/Vol] 9.8 mg/dL 7.6-11.0 [facility] Serum or plasma cholesterol in HDL measurement (mass/volume)Ordered By: Daphnie Asher 09-25-2024 Cholesterol in HDL [Mass/Vol] 85 mg/dL >40 [facility] Comment on above: National Cholesterol Education Program (NCEP) guidelines:<40 mg/dL: Low HDL-cholesterol (major risk factor for CHD)>= 60 mg/dL: High HDL-cholesterol (negative risk factor for CHD)HDL-cholesterol is affected by a number of factors, e.g. smoking, exercise, hormones, sex and age. Serum or plasma cholesterol measurement (mass/volume)Ordered By: Daphnie Asher 09-25-2024 Cholesterol [Mass/Vol] 161 mg/dL <201 [facility] Comment on above: Cholesterol level, D esirable <200 mg/dLBorderline high cholesterol 200-239 mg/dLHigh cholesterol >=240 mg/dLRecommendations of the NCEP Adult Treatment Panel for the following risk-cutoff thresholds for the [place] population. Serum or plasma urea nitroge n measurement (mass/volume)Ordered By: Daphnie Asher 09-25-2024 Urea nitrogen [Mass/Vol] 15 mg/dL 4-19 [facility] Sodium levelOrdered By: Francois Asher 09-25-2024 Sodium [Moles/Vol] 141 mmol/L 133-145 [facility] Total proteinOrdered By: Diego irvin Pillomarielarena on 09-25-2024 Protein [Mass/Vol] 7.1 g/dL 5.9-8.4 [facility] Triglycerides measurementOrd ered By: Daphnie Pilloseamus on 09-25-2024 Triglyceride [Mass/Vol] 42 mg/dL <199 [facility] Comment on above: The drugs N-Acetylcy steine and Metamizole may falsely depress this assay. Normal range: <150 mg/dLBorderline High: 150-199 mg/dLHigh: 200-499 mg/dLVery High: >500 mg/dL White blood cell (WBC) count Ordered By: Coltstu Ferromarielarena on 09-25-2024 WBC (Bld) [#/Vol] 4.7 10*3/uL 4.4-11.0 [facility] SCRN MAMM (CAD)W/SHAY BILATo n 03-29-2024 SCRN MAMM (CAD)W/SHAY BILAT [facility] [address] [place] [address] [id number] SCRN MAMM (CAD)W/SHAY BILAT MR#: [id number] Acct: [id number] Name: JOSE ROACH Rep #: [id number] : [id number] F 58 From: Charles doyle MD PCP: Dr. Daphnie Asher MD Status: [facility] Study: SCRN MAMM (CAD)W/SHAY BILAT Date of Exam: 03/02 11/23 Exam# [id number] Ordering Dr: Emily Turner PUBLISHING EDITOR-C PROCEDURE: SCRN MAMM (CAD)W/SHAY BILAT REASON FOR [...] of the results by letter. Reading Location: [place] [address] CC: MISHA Turner; Dr. Daphnie Asher MD Manager Payroll: Signed Normal [facility] Absolute lymphocyte countOrd ered By: Daphnie Asher on 09-16-2022 Lymphocytes Auto (Unsp spec) [#/Vol] 2.07 10*3/uL 0.83-4.51 [facility] Basophil percentageOrdered B y: Daphnie Asher on 09-16-2022 Basophils/100 WBC (Bld) 0.3 % 0-1 [facility] Bilirubin [Mass/Vol] 0.60 mg/dL 0.20-1.00 [facility] Comment on above: For patients on eltr ombopag therapy, use of Dimension [place]win TBIL is not recommended. Chloride [Moles/Vol] 105 mmol/L 98-107 [facility] Cholesterol [Mass/Vol] 145 mg/dL <200 [facility] Comment on above: <200 mg/dL Desirable 200-240 mg/dL Borderline >240 mg/dL High Risk Eosinophils/100 WBC (Bld) 0.6 % 0-5 [facility] Glucose [Mass/Vol] 83 mg/dL 74-106 [facility] Neutrophils (Bld) [#/Vol] 4.4 10*3/uL 2.0-7.7 [facility] Neutrophils/100 WBC (Bld) 62.9 % 47-70 [facility] Potassium [Moles/Vol] 3.9 mmol/L 3.5-5.1 [facility] Protein [Mass/Vol] 7.4 g/dL 6.4-8.2 [facility] Sodium [Moles/Vol] 141 mmol/L 136-145 [facility] Triglyceride [Mass/Vol] 215 mg/dL <199 [facility] Comment on above: The drugs N-Acetylcy steine and Metamizole may falsely depress this assay.Serum Triglycerides Reference Interval Normal <150 mg/dL Borderline high 150 - 199 mg/dL High 200 - 499 mg/dL Very High > or = 500 mg/dL WBC (Bld) [#/Vol] 6.9 10*3/uL 4.4-11.0 [facility] Blood erythrocytes count (nu mber/volume)Ordered By: Daphnie Asher on 09-16-2022 RBC (Bld) [#/Vol] 4.60 10*6/uL 4.2-5.4 [facility] Blood hemoglobin measurement (mass/volume)Ordered By: Daphnie Asher on 09-16-2022 Hemoglobin (Bld) [Mass/Vol] 14.4 g/dL 12.0-15.0 [facility] Blood lymphocytes/100 leukoc ytesOrdered By: Daphnie Asher on 09-16-2022 Lymphocytes/100 WBC (Bld) 30.0 % 19-41 [facility] Blood monocytes/100 leukocyt esOrdered By: Daphnie Asher on 09-16-2022 Monocytes/100 WBC (Bld) 6.1 % 0-10 [facility] Blood platelet mean volumeOr dered By: Daphnie Asher on 09-16-2022 Platelet mean volume (Bld) [Entitic vol] 11.1 fL 6.2-12.0 [facility] Determination of erythrocyte mean corpuscular volume (MCV)Ordered By: Daphnie Asher on 09-16-2022 MCV (RBC) [Entitic vol] 97.8 fL 81-99 [facility] Hematocrit Auto (Bld) [Volum e fraction]Ordered By: Daphnie Asher on 09-16-2022 Hematocrit (Bld) [Volume fraction] 45.0 % 37-47 [facility] - Chemistry and C hemistry - challengeOrdered By: Daphnie Asher on 09-16-2022 ALP [Catalytic activity/Vol] 58 U/L 45-117 [facility] ALT [Catalytic activity/Vol] 26 U/L 13-56 [facility] CO2 [Moles/Vol] 28.0 mmol/L 21.0-32.0 [facility] Globulin (S) [Mass/Vol] 3.4 g/dL 2.2-4.2 [facility] Urea nitrogen/Creatinine [Mass ratio] 22.0 mg/mg 10-20 [facility] - Hematology and Cell countsOrdered By: Daphnie Asher on 09-16-2022 Erythrocyte distribution width (RBC) [Entitic vol] 41.9 fL 35.1-43.9 [facility] Erythrocyte distribution width (RBC) [Ratio] 11.6 % 11.6-14.6 [facility] Immature granulocytes/100 WBC (Bld) 0.100 % 0.0-0.9 [facility] Comment on above: IG% - Immature Granu locytes (promyelocytes, myelocytes and metamyelocytes) > 1% indicates that a LEFT SHIFT is Present. MCH (RBC) [Entitic mass] 31.3 pg 27.0-32.0 [facility] Nucleated RBC/100 WBC (Bld) [Ratio] 0 % 0-5 [facility] MCHC Auto (RBC) [Mass/Vol]Or dered By: Daphnie Asher on 09-16-2022 MCHC (RBC) [Mass/Vol] 32.0 g/dL 32-36 [facility] No Panel InformationOrdered By: Daphnie Asher on 09-16-2022 Estimated GFR (MDRD) Amer 115 mL/min >60 [facility] Comment on above: GFR Calc Estimated GFR (MDRD) Non-Af Amer 95 mL/min >60 [facility] Comment on above: Non- GFR Calc Platelets bldOrdered By: Diego Asher on 09-16-2022 Platelets (Bld) [#/Vol] 226 10*3/uL 150-450 [facility] Serum or plasma albumin lydia urement (mass/volume)Ordered By: Daphnie Asher on 09-16-2022 Albumin [Mass/Vol] 4.0 g/dL 3.2-5.0 [facility] Serum or plasma albumin/glob ulin mass ratioOrdered By: Daphnie Asher on 09-16-2022 Albumin/Globulin [Mass ratio] 1.2 {ratio} 0.9-2.4 [facility] Serum or plasma calcium lydia urement (mass/volume)Ordered By: Daphnie Asher on 09-16-2022 Calcium [Mass/Vol] 8.9 mg/dL 8.5-10.1 [facility] Serum or plasma cholesterol in HDL measurement (mass/volume)Ordered By: Daphnie Asher on 09-16-2022 Cholesterol in HDL [Mass/Vol] 73 mg/dL >40 [facility] Comment on above: The drugs N-Acetylcy steine and Metamizole may falsely depress this assay. Reference Range HDL <40 mg/dL Low HDL Cholesterol HDL >or= 60 mg/dL High HDL Cholesterol Serum or plasma cholesterol in VLDL measurement (mass/volume)Ordered By: Daphnie Asher on 09-16-2022 Cholesterol in VLDL [Mass/Vol] 43 mg/dL 5-40 [facility] Serum or plasma creatinine m easurement (mass/volume)Ordered By: Daphnie Asher on 09-16-2022 Creatinine [Mass/Vol] 0.68 mg/dL 0.55-1.02 [facility] Comment on above: The validity of the calculated GFR & GFRAA in patients over 70 years has not been determined. Clinical correlation is essential. Serum or plasma low density lipoprotein (LDL) cholesterol measurement (mass/volume)Ordered By: Daphnie Asher on 09-16-2022 Cholesterol in LDL [Mass/Vol] 29 mg/dL 0-130 [facility] Serum or plasma urea nitroge n measurement (mass/volume)Ordered By: Daphnie Asher on 09-16-2022 Urea nitrogen [Mass/Vol] 15 mg/dL 7-18 [facility] Thin prep Papanicolaou smear with manual screeningOrdered By: Daphnie Asher on 09-16-2022 Thin prep Papanicolaou smear with manual screening 14 U/L 15-37 [facility] Thin prep Papanicolaou smear with manual screening 8 5-15 [facility] Basophil percentageOrdered B y: Dr. Asher on 01-12-2022 Cholesterol [Mass/Vol] 141 mg/dL <200 [facility] Comment on above: <200 mg/dL Desirable 200-240 mg/dL Borderline >240 mg/dL High Risk Triglyceride [Mass/Vol] 49 mg/dL <199 [facility] Comment on above: The drugs N-Acetylcy steine and Metamizole may falsely depress this assay.Serum Triglycerides Reference Interval Normal <150 mg/dL Borderline high 150 - 199 mg/dL High 200 - 499 mg/dL Very High > or = 500 mg/dL Serum or plasma cholesterol in HDL measurement (mass/volume)Ordered By: Dr. Asher on 01-12-2022 Cholesterol in HDL [Mass/Vol] 89 mg/dL >40 [facility] Comment on above: The drugs N-Acetylcy steine and Metamizole may falsely depress this assay. Reference Range HDL <40 mg/dL Low HDL Cholesterol HDL >or= 60 mg/dL High HDL Cholesterol Serum or plasma cholesterol in VLDL measurement (mass/volume)Ordered By: Dr. Asher on 01-12-2022 Cholesterol in VLDL [Mass/Vol] 10 mg/dL 5-40 [facility] Serum or plasma low density lipoprotein (LDL) cholesterol measurement (mass/volume)Ordered By: Dr. Asher on 01-12-2022 Cholesterol in LDL [Mass/Vol] 42 mg/dL 0-130 [facility] Basophil percentageOrdered B y: Dr. Asher on 01-09-2022 Bilirubin [Mass/Vol] 0.90 mg/dL 0.20-1.00 [facility] Comment on above: For patients on eltr ombopag therapy, use of Dimension [place]win TBIL is not recommended. Chloride [Moles/Vol] 106 mmol/L 98-107 [facility] Glucose [Mass/Vol] 128 mg/dL 74-106 [facility] Comment on above: Fasting Glucose resu lt greater than or equal to 126 mg/dL suggests DIABETES MELLITUS per A.D.A. criteria. Potassium [Moles/Vol] 3.7 mmol/L 3.5-5.1 [facility] Protein [Mass/Vol] 7.1 g/dL 6.4-8.2 [facility] Sodium [Moles/Vol] 141 mmol/L 136-145 [facility] Laboratory - Chemistry and C hemistry - challengeOrdered By: Dr. Asher on 01-09-2022 ALP [Catalytic activity/Vol] 52 U/L 45-117 [facility] ALT [Catalytic activity/Vol] 36 U/L 13-56 [facility] CO2 [Moles/Vol] 28.0 mmol/L 21.0-32.0 [facility] Globulin (S) [Mass/Vol] 3.0 g/dL 2.2-4.2 [facility] Urea nitrogen/Creatinine [Mass ratio] 26.2 mg/mg 10-20 [facility] No Panel InformationOrdered By: Dr. Asher on 01-09-2022 Estimated GFR (MDRD) Amer 115 mL/min >60 [facility] Comment on above: GFR Calc Estimated GFR (MDRD) Non-Af Amer 95 mL/min >60 [facility] Comment on above: Non- GFR Calc Serum or plasma albumin lydia urement (mass/volume)Ordered By: Dr. Asher on 01-09-2022 Albumin [Mass/Vol] 4.1 g/dL 3.2-5.0 [facility] Serum or plasma albumin/glob ulin mass ratioOrdered By: Dr. Asher on 01-09-2022 Albumin/Globulin [Mass ratio] 1.4 {ratio} 0.9-2.4 [facility] Serum or plasma calcium lydia urement (mass/volume)Ordered By: Dr. Asher on 01-09-2022 Calcium [Mass/Vol] 9.1 mg/dL 8.5-10.1 [facility] Serum or plasma creatinine m easurement (mass/volume)Ordered By: Dr. Asher on 01-09-2022 Creatinine [Mass/Vol] 0.69 mg/dL 0.55-1.02 [facility] Comment on above: The validity of the calculated GFR & GFRAA in patients over 70 years has not been determined. Clinical correlation is essential. Serum or plasma urea nitroge n measurement (mass/volume)Ordered By: Dr. Asher on 01-09-2022 Urea nitrogen [Mass/Vol] 18 mg/dL 7-18 [facility] Thin prep Papanicolaou smear with manual screeningOrdered By: Dr. Asher on 01-09-2022 Thin prep Papanicolaou smear with manual screening 19 U/L 15-37 [facility] Thin prep Papanicolaou smear with manual screening 7 5-15 [facility] Absolute lymphocyte counton 09-08-2021 Lymphocytes Auto (Unsp spec) [#/Vol] 1.49 10*3/uL 0.83-4.51 [facility] Work Phone: [phone] Basophil percentageon 2021 Basophils/100 WBC (Bld) 0.4 % 0-1 [facility] Work Phone: [phone] Bilirubin [Mass/Vol] 0.90 mg/dL 0.20-1.00 [facility] Work Phone: [phone] Comment on above: For patients on eltr ombopag therapy, use of Dimension [place] TBIL is not recommended. Chloride [Moles/Vol] 104 mmol/L 98-107 [facility] Work Phone: [phone] Cholesterol [Mass/Vol] 273 mg/dL <200 [facility] Work Phone: Comment on above: <200 mg/dL Desirable 200-240 mg/dL Borderline >240 mg/dL High Risk Eosinophils/100 WBC (Bld) 0.4 % 0-5 [facility] Work Phone: Glucose [Mass/Vol] 96 mg/dL 74-106 [facility] Work Phone: [phone] Neutrophils (Bld) [#/Vol] 2.7 10*3/uL 2.0-7.7 [facility] Work Phone: [phone] Neutrophils/100 WBC (Bld) 58.0 % 47-70 [facility] Work Phone: [phone] Potassium [Moles/Vol] 4.7 mmol/L 3.5-5.1 [facility] Work Phone: [phone] Protein [Mass/Vol] 7.7 g/dL 6.4-8.2 [facility] Work Phone: [phone] Sodium [Moles/Vol] 139 mmol/L 136-145 [facility] Work Phone: [phone] Triglyceride [Mass/Vol] 92 mg/dL <199 [facility] Work Phone: Comment on above: The drugs N-Acetylcy steine and Metamizole may falsely depress this assay.Serum Triglycerides Reference Interval Normal <150 mg/dL Borderline high 150 - 199 mg/dL High 200 - 499 mg/dL Very High > or = 500 mg/dL WBC (Bld) [#/Vol] 4.7 10*3/uL 4.4-11.0 [facility] Work Phone: Blood erythrocytes count (nu mber/volume)on 09-08-2021 RBC (Bld) [#/Vol] 4.66 10*6/uL 4.2-5.4 [facility] Work Phone: Blood hemoglobin measurement (mass/volume)on 09-08-2021 Hemoglobin (Bld) [Mass/Vol] 14.7 g/dL 12.0-15.0 [facility] Work Phone: Blood lymphocytes/100 leukoc yteson 09-08-2021 Lymphocytes/100 WBC (Bld) 32.0 % 19-41 [facility] Work Phone: Blood monocytes/100 leukocyt eson 09-08-2021 Monocytes/100 WBC (Bld) 7.7 % 0-10 [facility] Work Phone: Blood platelet mean volumeon 09-08-2021 Platelet mean volume (Bld) [Entitic vol] 11.2 fL 6.2-12.0 [facility] Work Phone: Determination of erythrocyte mean corpuscular volume (MCV)on 09-08-2021 MCV (RBC) [Entitic vol] 96.6 fL 81-99 [facility] Work Phone: Hematocrit Auto (Bld) [Volum e fraction]on 09-08-2021 Hematocrit (Bld) [Volume fraction] 45.0 % 37-47 [facility] Work Phone: Laboratory - Chemistry and C hemistry - challengeon 09-08-2021 ALP [Catalytic activity/Vol] 60 U/L 45-117 [facility] Work Phone: ALT [Catalytic activity/Vol] 30 U/L 13-56 [facility] Work Phone: CO2 [Moles/Vol] 30.0 mmol/L 21.0-32.0 [facility] Work Phone: Globulin (S) [Mass/Vol] 3.5 g/dL 2.2-4.2 [facility] Work Phone: Urea nitrogen/Creatinine [Mass ratio] 25.4 mg/mg 10-20 [facility] Work Phone: Laboratory - Hematology and Cell countson 09-08-2021 Erythrocyte distribution width (RBC) [Entitic vol] 41.6 fL 35.1-43.9 [facility] Work Phone: Erythrocyte distribution width (RBC) [Ratio] 11.8 % 11.6-14.6 [facility] Work Phone: Immature granulocytes/100 WBC (Bld) 1.500 % 0.0-0.9 [facility] Work Phone: Comment on above: IG% - Immature Granu locytes (promyelocytes, myelocytes and metamyelocytes) > 1% indicates that a LEFT SHIFT is Present. MCH (RBC) [Entitic mass] 31.5 pg 27.0-32.0 [facility] Work Phone: Nucleated RBC/100 WBC (Bld) [Ratio] 0 % 0-5 [facility] Work Phone: MCHC Auto (RBC) [Mass/Vol]on 09-08-2021 MCHC (RBC) [Mass/Vol] 32.7 g/dL 32-36 [facility] Work Phone: No Panel Informationon 09-08 Estimated GFR (MDRD) Amer 93 mL/min >60 [facility] Work Phone: [phone] Comment on above: GFR Calc Estimated GFR (MDRD) Non-Af Amer 77 mL/min >60 [facility] Work Phone: Comment on above: Non- GFR Calc Platelets bldon 09-08-2021 Platelets (Bld) [#/Vol] 207 10*3/uL 150-450 [facility] Work Phone: Serum or plasma albumin lydia urement (mass/volume)on 09-08-2021 Albumin [Mass/Vol] 4.2 g/dL 3.2-5.0 [facility] Work Phone: Serum or plasma albumin/glob ulin mass ratioon 09-08-2021 Albumin/Globulin [Mass ratio] 1.2 {ratio} 0.9-2.4 [facility] Work Phone: Serum or plasma calcium lydia urement (mass/volume)on 09-08-2021 Calcium [Mass/Vol] 9.4 mg/dL 8.5-10.1 [facility] Work Phone: Serum or plasma cholesterol in HDL measurement (mass/volume)on 09-08-2021 Cholesterol in HDL [Mass/Vol] 85 mg/dL >40 [facility] Work Phone: Comment on above: The drugs N-Acetylcy steine and Metamizole may falsely depress this assay. Reference Range HDL <40 mg/dL Low HDL Cholesterol HDL >or= 60 mg/dL High HDL Cholesterol Serum or plasma cholesterol in VLDL measurement (mass/volume)on 09-08-2021 Cholesterol in VLDL [Mass/Vol] 18 mg/dL 5-40 [facility] Work Phone: Serum or plasma creatinine m easurement (mass/volume)on 09-08-2021 Creatinine [Mass/Vol] 0.83 mg/dL 0.55-1.02 [facility] Work Phone: Comment on above: The validity of the calculated GFR & GFRAA in patients over 70 years has not been determined. Clinical correlation is essential. Serum or plasma low density lipoprotein (LDL) cholesterol measurement (mass/volume)on 07-11-2022 Cholesterol in LDL [Mass/Vol] 170 mg/dL 0-130 [facility] Work Phone: Serum or plasma urea nitroge n measurement (mass/volume)on 09-08-2021 Urea nitrogen [Mass/Vol] 21 mg/dL 7-18 [facility] Work Phone: Thin prep Papanicolaou smear with manual screeningon 09-08-2021 Thin prep Papanicolaou smear with manual screening 20 U/L 15-37 [facility] Work Phone: Thin prep Papanicolaou smear with manual screening 5 5-15 [facility] Work Phone: Vital Signs Date Time Vital Sign Value Performing Clinician Faci lity 09-25-2024 09:29-0400 Body height 172.[address] Daphnie Asher MD Work Phone: [facility] 09-25-2024 09:29-0400 Body mass index (BMI) [Ratio] 21.1 kg/m2 Dr. Daphnie Asher MD Work Phone: [facility] 09-25-2024 09:29-0400 Body temperature 97.3 [degF] Dr. Daphnie Asehr MD Work Phone: [facility] 09-25-2024 09:29-0400 Body weight 63.[address] Daphnie Asher MD Work Phone: [facility] 09-25-2024 09:29-0400 Diastolic blood pressure 72 mm[Hg] Dr. Daphnie Asher MD Work Phone: [facility] 09-25-2024 09:29-0400 Heart rate 80 /min Dr. Daphnie Asher MD Work Phone: [facility] 09-25-2024 09:29-0400 Respiratory rate 16 /min Dr. Daphnie Asher MD Work Phone: [facility] 09-25-2024 09:29-0400 SaO2% (BldA) [Mass fraction] 96 % Dr. Daphnie Asher MD Work Phone: [facility] 09-25-2024 09:29-0400 Systolic blood pressure 110 mm[Hg] Dr. Daphnie Asher MD Work Phone: [facility] 03-17-2023 15:55-0500 Body height 172.[address] Daphnie Asher Work Phone: [facility] 03-17-2023 15:55-0500 Body mass index (BMI) [Ratio] 22.2 kg/m2 Dr. Daphnie Asher Work Phone: [facility] 03-17-2023 15:55-0500 Body temperature 97.9 [degF] Dr. Daphnie Asher Work Phone: [facility] 03-17-2023 15:55-0500 Body weight 66.[address] Daphnie Asher Work Phone: [facility] 03-17-2023 15:55-0500 Diastolic blood pressure 82 mm[Hg] Dr. Daphnie Asher Work Phone: [facility] 03-17-2023 15:55-0500 Heart rate 98 /min Dr. Daphnie Asher Work Phone: [facility] 03-17-2023 15:55-0500 Respiratory rate 16 /min Dr. Daphnie Asher Work Phone: [facility] 03-17-2023 15:55-0500 SaO2% (BldA) [Mass fraction] 98 % Dr. Daphnie Asher Work Phone: [facility] 03-17-2023 15:55-0500 Systolic blood pressure 122 mm[Hg] Dr. Daphnie Asher Work Phone: [facility] 09-16-2022 15:02-0400 Body height 172.[address] Daphnie Asher Work Phone: [facility] 09-16-2022 15:02-0400 Body mass index (BMI) [Ratio] 21.9 kg/m2 Dr. Daphnie Asher Work Phone: [facility] 09-16-2022 15:02-0400 Body temperature 97.6 [degF] Dr. Daphnie Asher Work Phone: [facility] 09-16-2022 15:02-0400 Body weight 65.[address] Daphnie Asher Work Phone: [facility] 09-16-2022 15:02-0400 Diastolic blood pressure 82 mm[Hg] Dr. Daphnie Asher Work Phone: [facility] 09-16-2022 15:02-0400 Heart rate 74 /min Dr. Daphnie Asher Work Phone: [facility] 09-16-2022 15:02-0400 Respiratory rate 14 /min Dr. Daphnie Asher Work Phone: [facility] 09-16-2022 15:02-0400 SaO2% (BldA) [Mass fraction] 96 % Dr. Daphnie Asher Work Phone: [facility] 09-16-2022 15:02-0400 Systolic blood pressure 116 mm[Hg] Dr. Daphnie Asher Work Phone: [facility] 01-12-2022 08:39-0500 Body temperature 97.6 [degF] Dr. Daphnie Asher Work Phone: [facility] 01-12-2022 08:39-0500 Body weight 65.[address] Daphnie Asher Work Phone: [facility] 01-12-2022 08:39-0500 Diastolic blood pressure 84 mm[Hg] Dr. Daphnie Asher Work Phone: [facility] 01-12-2022 08:39-0500 Heart rate 84 /min Dr. Daphnie Asher Work Phone: [facility] 01-12-2022 08:39-0500 Respiratory rate 18 /min Dr. Daphnie Asher Work Phone: [facility] 01-12-2022 08:39-0500 SaO2% (BldA) [Mass fraction] 97 % Dr. Daphnie Asher Work Phone: [facility] 01-12-2022 08:39-0500 Systolic blood pressure 126 mm[Hg] Dr. Daphnie Asher Work Phone: [facility] 09-09-2021 13:27-0400 Body height 172.[address] Daphnie Asher Work Phone: [facility] Work Phone: 09-09-2021 13:27-0400 Body mass index (BMI) [Ratio] 20.9 kg/m2 Dr. Daphnie Asher Work Phone: [facility] Work Phone: 09-09-2021 13:27-0400 Body weight 62.[address] Daphnie Asher Work Phone: [facility] Work Phone: 09-08-2021 09:52-0400 Body mass index (BMI) [Ratio] 20.9 kg/m2 Dr. Daphnie Asher Work Phone: [facility] Work Phone: 09-08-2021 09:52-0400 Body temperature 97.2 [degF] Dr. Daphnie Asher Work Phone: [facility] Work Phone: 09-08-2021 09:52-0400 Body weight 62.[address] Daphnie Asher Work Phone: [facility] Work Phone: 09-08-2021 09:52-0400 Diastolic blood pressure 82 mm[Hg] Dr. Daphnie Asher Work Phone: [facility] Work Phone: 09-08-2021 09:52-0400 Heart rate 82 /min Dr. Daphnie Asher Work Phone: [facility] Work Phone: 09-08-2021 09:52-0400 Respiratory rate 14 /min Dr. Daphnie Asher Work Phone: [facility] Work Phone: 09-08-2021 09:52-0400 SaO2% (BldA) [Mass fraction] 98 % Dr. Daphnie Asher Work Phone: [facility] Work Phone: 09-08-2021 09:52-0400 Systolic blood pressure 118 mm[Hg] Dr. Daphnie Asher Work Phone: [facility] Work Phone: Encounters Encounter Date Encounter Type Care Provider Facility Start: 01-08-2025 ambulatory [facility] Facility :[facility] Start: 10-03-2024 Encounter for genera l adult medical examination without abnormal findings Daphnie Asher [facility] Start: 09-25-2024 End: 09-25-[address] Daphnie Asher MD -[facility] Work Phone: Start: 09-25-2024 End: 09-25-[address] Daphnie Asher MD [facility] Start: 09-25-2024 End: 09-25-[address] Daphnie Asher MD Work Phone: -[facility] Start: 09-25-2024 End: 09-25-2024 ambulatory Daphnie Asher Facility:[facility] Start: 03-29-2024 End: 03-29-2024 ambulatory Daphnie Asher Facility:[facility] Start: 03-24-2023 End: 03-24-[address] Daphnie Asher Work Phone: [facility] Work Phone: Start: 03-24-2023 End: 03-24-[address] Daphnie Asher Work Phone: [facility] Work Phone: Start: 03-17-2023 End: 03-17-[address] Daphnie Asher Work Phone: [facility] Work Phone: Start: 09-16-2022 End: 09-16-[address] Daphnie Asher Work Phone: [facility] Work Phone: Start: 09-16-2022 End: 09-16-2022 Encounter for general adult medical examination without abnormal findings Dr. Daphnie Asher Work Phone: [facility] Start: 09-16-2022 End: 09-16-[address] Daphnie Asher Work Phone: [facility] Work Phone: Start: 03-18-2022 End: 03-18-[address] Daphnie Asher Work Phone: [facility] Work Phone: Start: 03-18-2022 End: 03-18-[address] Daphnie Asher Work Phone: [facility] Start: 01-12-2022 End: 01-12-[address] Daphnie Asher Work Phone: [facility] Work Phone: Start: 01-12-2022 End: 01-12-[address] Daphnie Asher Work Phone: [facility] Start: 01-09-2022 End: 01-09-[address] Daphnie Asher Work Phone: [facility] Work Phone: Start: 01-09-2022 End: 01-09-[address] Daphnie Asher Work Phone: [facility] [place] Start: 09-09-2021 Non-patient / Non-visit Dr. Lynn Asher Work Phone: [facility] Start: 09-08-[address] Daphnie Asher Work Phone: [facility] Start: 09-08-2021 End: 09-08-2021 Encounter for general adult medical examination without abnormal findings Dr. Daphnie Asher Work Phone: [facility] Start: 09-08-2021 End: 09-08-[address] Daphnie Asher Work Phone: [facility] Start: 02-04-[address] Daphnie Asher Work Phone: [facility] Procedures Date Procedure Procedure Detail Performing Clinician Start: 03-24-2023 Screening mammography Faustino Asher Work Phone: Start: 03-18-2022 Screening mammography Faustino Asher Work Phone: Start: 03-18-[address] Daphnie Asher Work Phone: Plan of Treatment Date Care Activity Detail Author Start: 03-17-2023 Patient referral [facility] Work Phone: Lipid 1996 panel - S karishma or Plasma [facility] Patient referral [facility] Work Phone: Payers Date Payer Category Payer Self-pay [id number] 2023 Private Health Insurance [id number] 2013 Unknown [id number] Unknown [id number] Unknown [id number] Unknown [id number] Unknown [id number] Social History Date Type Detail Facility Start: 09-08-2021 End: 03-17-2023 Tobacco smoking status NHIS Unknown if ever smoked [facility] Start: 1965 Sex Assigned At Female [facility] Start: 12-30-2023 Tobacco smoking stat us ARIS Never smoked tobacco (finding) [facility] Evaluation note 09-25-2024 Note Date & Type Note Facility 09-25-2024 Evaluation note Diagnosis Onset Date Resolution Colon cancer screening acute Ju 2024 9:21am Preventative health care acute September 25, 2024 9:21am Toe pain acute September 25 9:21am Hyperlipidemia chronic September 25, 2024 9:21am [facility] Work Phone: Evaluation note Note Date & Type Note Facility Evaluation note Diagnosis Onset Date Colon cancer screening acute Preventative health care acu [facility] Work Phone: Evaluation note Note Date & Type Note Facility Evaluation note Diagnosis Onset Date Hyperlipidemia chronic [facility] Work Phone: Evaluation note Note Date & Type Note Facility Evaluation note Diagnosis Onset Date Preventative health care acu [facility] Work Phone: Evaluation note Note Date & Type Note Facility Evaluation note Diagnosis Onset Date Headache chronic Hyperlipidemia chronic [facility] Work Phone: Hospital Discharge instructions Note Date & Type Note Facility Hospital Discharge instructions Ambulatory OrdersGastroenterology Location: None Selected [facility] Work Phone: Chief Complaint and Reason for [...] fu screening Reason for Visit Headache Hyperlipidemia Chief Complaint Admit Date CHK UP September 25, 2024 9:21 am Reason for Visit Admit Date Colon cancer screening September 25, 2024 9 :21am Preventative health care September 25, 2024 9:21am Toe pain September 25, 2024 9:21 am Hyperlipidemia September 25, 2024 9:21 am Family History No Family History Records Found Relationship Condition Age at Onset Recorded Date/T alis father Malignant neoplasm Unknown grandmother Malignant neoplasm of breast 40 Summary Purpose Advance Directives No Advanced Directives Records Found [...] Dr. Daphnie Asher MD Primary Care Jori flores, Attending Provider, Referring Provider Active Team Status: Inactive Member Role Status Dates Dr. Daphnie Asher MD Primary Care Provider Active Dr. Bianca Narvaez DO Attending Provider Active Team Status: Inactive Member Role Status Dates Dr. Daphnie Asher MD Primary Care Provider, Atten ding Provider Active Team Status: Active Member Role/Relationship Status Dates Dr. Adsi Narvaez MD Family Provider Active Dr. Daphnie Asher MD Primary Care Provider Active Team Status: Inactive Member Role/Relationship Status Dates Dr. Daphnie Asher MD Primary Care Provider Active Start: September 25, 2024 End: September 25, 2024 Dr. Daphnie Asher MD Attending Provider Active Start: September 25, 2024 End: September 25, 2024 Dr. Daphnie Asher MD Referring Provider Active Start: September 25, 2024 End: September 25, 2024 Team Status: Active Member Role/Relationship Status Dates Dr. Daphnie Asher MD Primary Care Provider Active Start: September 25, 2024 Dr. Daphnie Asher MD Attending Provider Active Start: September 25, 2024 Dr. Daphnie Asher MD Referring Provider Active Start: September 25, 2024 Team Status: Inactive Member Role/Relationship Status Dates Dr. Daphnie Asher MD Primary Care Provider Active Start: September 25, 2024 End: September 25, 2024 Dr. Daphnie Asher MD Attending Provider Active Start: September 25, 2024 End: September 25, 2024 Dr. Daphnie Asher MD Referring Provider Active Start: September 25, 2024 End: September 25, 2024 INFORMATION SOURCE (unrecogn ized section and content) DATE CREATED AUTHOR 01/07/2025 [facility] FOR RECORDS PERTAINING TO PATIENTS WHO ARE [...] BE BASED ON THE PRIMARY CLINICAL RECORDS. [employer] provides no warranty or guarantee of the accuracy or completeness of information in this document.
[2025-01-08] MEDS: Lactated Ringers 1,000 ML 15 ML IV (06:44)
--- NOTE | 2025-01-08 06:58 | PCM.HP.STD ---
[facility] - General General Date of Admission: 01/08/25 Date of Service: 01/08/25 Chief Complaint: Screening colonoscopy HPI Narrative JOSE ROACH, is a 59 F who presents [today for screening colonoscopy. She has not had a colonoscopy in the past. Does not have any abdominal pain, bleeding, chest pain or shortness of breath. Overall she is in very good health.] [facility] Medical History Post-menopausal High cholesterol Non-smoker Toe pain Preventative health care Health care maintenance Headache Hyperlipidemia Colon cancer screening Home Medications ?Medication ?Instructions ?Recorded ?Last Taken ?Type diphenhydramine 25 1 tab PO QHS PRN sleep 01/12/22 01/07/25 History mg-acetaminophen 500 mg tablet (Tylenol PM Extra Strength) inulin 2 gram chewable tablet 2 g PO DAILY 01/12/22 01/07/25 History (Fiber Gummies) rosuvastatin 20 mg tablet 20 mg PO DAILY #90 TABLETS 08/31/24 01/07/25 Rx Allergy/AdvReac Type Severity Reaction Status Date / Time venom-honey bee Allergy Intermediate Swollen Verified 01/08/25 06:43 Family History Father Cancer Grandmother Breast cancer, Onset Age: 40 Surgical History History of uterine ablation Social History adopted: No number of children: 3 current occupational status: retired sexually active: No Smoking Status: Never smoker alcohol intake: never substance use type: does not use rafael/judaism: Adventist seatbelt use: always do you feel safe at home: Yes additional social history: ROS Constitutional Constitutional: Denies fatigue, fever(s), poor appetite, weight gain or weight loss Gastrointestinal Gastrointestinal: Denies belching, bloating, change in bowel habits, change in stool character, chewing difficulty, coffee ground emesis, constipation, cramping, diarrhea, dyspepsia, dysphagia, early satiety, excessive flatus, fecal incontinence, heartburn, hematemesis, hematochezia, hemorrhoids, loose stools, melena, nausea, odynophagia, rectal bleeding, tenesmus, vomiting or weight changes Vital Signs Vital Signs Vital Signs: 01/08/25 06:45 01/08/25 06:45 Temperature 97.7 F L Temperature Source Temporal Pulse Rate 82 Respiratory Rate 17 Respiratory Pattern Normal Blood Pressure 120/72 Blood Pressure Mean 88 Blood Pressure Source Monitor Blood Pressure Position Semi-Fowlers Blood Pressure Location Right Arm Pulse Ox 100 Oxygen Delivery Method Room Air Weight Weight: 141 lb 1.533 oz Body Mass Index (BMI) 21.4 Physical Exam Const alert, oriented x3, no apparent distress and healthy appearing General Appearance: cooperative GI normal to inspection, nondistended, normoactive bowel sounds, soft to palpation, non-tender and non-distended Percussion: normal to percussion Rectal Exam: deferred Assessment & Plan Assessment/Plan (1) Colon cancer screening: PLAN: She was explained alternatives, risk and benefits going understanding bleeding, infection, sepsis, perforation, need for charge and . She will have an ASA of 3.
--- NOTE | 2025-01-08 07:07 | PRE.ANES_ITS ---
ASA Classification* ASA Classification ASA Classification: 2 Assessment & Plan Anesthesia* Anesthesia Assessment Anesthesia Assessment: Discussed sedation and/or anesthesia options, risks, benefits, and alternatives with patient/parents/legal guardian/POA. Questions invited. The patient/parents/legal guardian/POA seems to understand and agrees to proceed with anesthesia plan. Reviewed the physical assessment, medical history, allergy history and patient home medications list prior to surgery/procedure/anesthetic and documented any changes. Performed airway and anesthesia risk assessments. Anesthesia Type Anesthesia Type: MAC History Source History Obtained from:: Patient and Chart Anesthesia Focused Assessment* Temperature: 97.7 F Pulse Rate: 82 Blood Pressure: 120/72 Respiratory Rate: 17 Pulse Ox: 100 Oxygen Delivery Method: Room Air Airway Assessment Mouth opens: >3 cm Mallampati Score: II Teeth Condition: Intact Neck Range of motion (ROM): Full ROM Labs Anesthesia Preop lab: CBC WBC, (4.4-11.0) 4.7 K/mm3 09/25/24, 10:07 RBC, (4.2-5.4) 4.71 M/mm3 09/25/24, 10:07 Hgb, (12.0-15.0) 14.7 g/dL 09/25/24, 10:07 Hct, (37-47) 44.8 % 09/25/24, 10:07 Plt Count, (150-450) 206 K/mm3 09/25/24, 10:07 CHEMISTRY Potassium, (3.3-5.1) 4.9 mmol/L 09/25/24, 10:07 Sodium, (133-145) 141 mmol/L 09/25/24, 10:07 BUN, (4-19) 15 mg/dL 09/25/24, 10:07 Creatinine, (0.70-1.20) 0.77 mg/dL 09/25/24, 10:07 Glucose, (70-99) 91 mg/dL 09/25/24, 10:07 TSH, (0.358-3.74) 0.77 uIU/mL 12/25/20, 10:07 COAG Pre-Assessment Diagnosis/Proposed Procedure Planned Operative Procedure(s): COLONOSCOPY-OA Anesthesia History 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 When Was Last Pacemaker Check QUESTION #4 FULL TEXT: You/Your Family Experience fever (hyperthermia) with Anesthesia Last Oral Intake Last Oral intake: Last Oral Intake NPO since 04:00 01/08/25 06:45 Meds taken in AM with sips of Yes 01/08/25 06:45 water? Meds patient instructed to split prep 01/08/25 06:45 take am of surgery PONV PONV - medical assisting instructor: PONV - medical assisting instructor Female Yes 01/03/25 13:19 HX of Motion Sickness No 01/03/25 13:19 HX of N/V After Surgery No 01/03/25 13:19 Non-Smoker Yes 01/03/25 13:19 Duration of Surgery greater No 01/03/25 13:19 than 60 minutes Number of Risk Factors 2 01/03/25 13:19 PONV Score Moderate Risk 01/03/25 13:19 Height & Weight Height & Weight: Anesthesia: Height & Weight Height 5 ft 8 in 01/08/25 06:45 Weight: 64 kg 01/08/25 06:45 Body Mass Index (BMI) 21.4 01/08/25 06:45 Respiratory Assessment Respiratory Assessment - medical assisting instructor: Respiratory Tract Infection Hx - medical assisting instructor Hx Respiratory Tract Infection No 01/03/25 13:19 STOP Sleep Apnea STOP Sleep Apnea - medical assisting instructor: STOP Sleep Apnea - medical assisting instructor Hx Hypertension No 01/03/25 13:19 Hx Sleep Apnea No 01/03/25 13:19 CPAP BIPAP Do you snore loudly (louder No 01/03/25 13:19 than talking or can be heard Do you often feel tired/ No 01/03/25 13:19 fatigued/ sleepy during daytime? Has anyone observed you stop No 01/03/25 13:19 breathing during sleep? STOP Results Negative 01/03/25 13:19 QUESTION #5 FULL TEXT : Do you snore loudly (louder than talking or can be heard through closed doors)? 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 Specify any problems Hx of Preganancy in last 3 No 01/03/25 13:19 Months Nurse Filling Out Transfusion VCHRISTIN 01/03/25 13:19 & Questions: Date: 01/03/25 01/03/25 13:19 Time: 13:20 01/03/25 13:19 Patient unable to answer at this time (ie. confused, unrespo /Reproduction History /Reproductive History - medical assisting instructor: /Reproductive Hx- medical assisting instructor Hx Now No 01/03/25 13:19 Gestational Age (in weeks): EDC: Hx Hx Para Hx Section SAB No 01/03/25 13:19 Does the father of the baby or his family experience fever w Father of the baby Malignant Hypertension history comment Active Medications Active Medications: Current Medications Generic Name Dose Route Start Last Admin Trade Name Freq PRN Reason Stop Dose Admin Lactated Ringer's 1,000 mls @ 15 mls/hr 01/08/25 06:30 01/08/25 06:44 IV 15 mls/hr .Q48H RAYMOND Administration PFSH Medical History Post-menopausal High cholesterol Non-smoker Toe pain Preventative health care Health care maintenance Headache Hyperlipidemia Colon cancer screening Home Medications ?Medication ?Instructions ?Recorded ?Last Taken ?Type diphenhydramine 25 1 tab PO QHS PRN sleep 01/1201/07/25 History mg-acetaminophen 500 mg tablet (Tylenol PM Extra Strength) inulin 2 gram chewable tablet 2 g PO DAILY 01/12/22 History (Fiber Gummies) rosuvastatin 20 mg tablet 20 mg PO DAILY #90 TABLETS 0 08/31/24 01/07/25 Rx Allergy/AdvReac Type Severity Reaction Status Date / Time venom-honey bee Allergy Intermediate Swollen Verified 01/08/25 06:43 Family History Father Cancer Grandmother Breast cancer, Onset Age: 40 Surgical History History of uterine ablation Social History adopted: No number of children: 3 current occupational status: retired sexually active: No Smoking Status: Never smoker alcohol intake: never substance use type: does not use rafael/sabianism: Alevism seatbelt use: always do you feel safe at home: Yes additional social history: Review of Systems (Anesthesia) ROS Narrative System reviewed and no additional complaints, except as documented. Physical Exam Const alert, oriented x3 and average body habitus Resp normal respiratory effort, normal air movement and clear to auscultation bilaterally Cardio regular rate, regular rhythm, no murmurs and diaphoretic
--- NOTE | 2025-01-08 08:19 | OP.COLON_ITS ---
Patient Name: Lolis Black Procedure Date: 01/08/2025 7:39 AM Date of : 1965 Age: 59 Procedure: Colonoscopy Indications: Screening for colorectal malignant neoplasm Providers: Jerod Echeverria DO Referring MD: Daphnie Asher MD Medicines: Monitored Anesthesia Care Patient Profile: This is a 59 year old female. Refer to note in patient chart for documentation of history and physical. Last Colonoscopy: none. The patient's first colonoscopy is today. Complications: No immediate complications. Procedure: Pre-Anesthesia Assessment: - Prior to the procedure, a History and Physical was performed, and patient medications and allergies were reviewed. The patient is competent. The risks and benefits of the procedure and the sedation options and risks were discussed with the patient. All questions were answered and informed consent was obtained. Patient identification and proposed procedure were verified by the physician in the pre-procedure area. Mental Status Examination: alert and oriented. Airway Examination: normal oropharyngeal airway and neck mobility. Respiratory Examination: clear to auscultation. CV Examination: normal. Prophylactic Antibiotics: The patient does not require prophylactic antibiotics. Prior Anticoagulants: The patient has taken no anticoagulant or antiplatelet agents. ASA Grade Assessment: II - A patient with mild systemic disease. After reviewing the risks and benefits, the patient was deemed in satisfactory condition to undergo the procedure. The anesthesia plan was to use monitored anesthesia care (MAC). Immediately prior to administration of medications, the patient was re-assessed for adequacy to receive sedatives. The heart rate, respiratory rate, oxygen saturations, blood pressure, adequacy of pulmonary ventilation, and response to care were monitored throughout the procedure. The physical status of the patient was re-assessed after the procedure. After I obtained informed consent, the scope was passed under direct vision. Throughout the procedure, the patient's blood pressure, pulse, and oxygen saturations were monitored continuously. The colonoscope was introduced through the anus and advanced to the cecum, identified by appendiceal orifice and ileocecal valve. The colonoscopy was performed without difficulty. The patient tolerated the procedure well. The quality of the bowel preparation was adequate. The ileocecal valve, appendiceal orifice, and rectum were photographed. Scope In: 7:56:53 AM Scope Withdrawal Time 0 hours 7 minutes 41 seconds Scope Out: 8:14:03 AM Total Procedure Duration Time 0 hours 17 minutes 10 seconds Findings: The perianal and digital rectal examinations were normal. The colon (entire examined portion) appeared normal. Internal hemorrhoids were found during retroflexion. The hemorrhoids were mild and Grade I (internal hemorrhoids that do not prolapse). Impression: - The entire examined colon is normal. - Internal hemorrhoids. - No specimens collected. Recommendation: - Repeat colonoscopy in 10 years for screening purposes. - Continue present medications. Procedure Code(s): --- Professional --- G0121, Colorectal cancer screening; colonoscopy on individual not meeting criteria for high risk CPT copyright 2021 [employer]. All rights reserved. The codes documented in this report are preliminary and upon brick and block mason review may be revised to meet current compliance requirements. Jerod Echeverria DO 01/08/2025 8:19:22 AM This report has been signed electronically. Number of Addenda: 0 Note Initiated On: 01/08/2025 7:39 AM
--- NOTE | 2025-01-08 08:20 | OP.PROVAT_ITS ---
01/08/2025 Daphnie Asher MD [address] [place] [address] [place] [address] Re : Colonoscopy procedure for Lolis Sofia Dear Dr. Asher This procedure was performed on Wednesday, January 08, 2025. My impressions and recommendations are as follows: Impressions : - The entire examined colon is normal. - Internal hemorrhoids. - No specimens collected. Recommendations : - Repeat colonoscopy in 10 years for screening purposes. - Continue present medications. My findings are described in the full procedure note, which is enclosed. If I can be of further assistance, please feel free to contact me at . Sincerely, Jerod Echeverria, 01/08/2025 8:19:22 AM This report has been signed electronically.
--- NOTE | 2025-01-08 08:24 | PCM.POST.ANE ---
Anesthesia: Postop Eval I Current Vital Signs Temperature: 97.1 F Pulse Rate: 67 Blood Pressure: 98/60 Respiratory Rate: 16 Pulse Ox: 100 Oxygen Delivery Method: Room Air Assessment Airway patent: Yes Spontaneous unlabored respirations: Yes Mental status: Asleep nausea: No Vomiting: No Anesthesia Complication: No Fluid Hydration Crystalloid volume administer (ml): 500 Total IV fluid infused: 500 Progress Note Anesthesia document: Postop Eval 1 completed: Yes
--- NOTE | 2025-01-08 13:45 | PCM.POSTANE2 ---
Anesthesia Postop Eval I Sum Postop Eval Completion status Anesthesia document: Postop Eval 1 completed: Yes Anesthesia Postop Eval I Summary Anesthesia Postop Eval I Summary: Anesthesia Postop Eval I: Assessment Summary Airway patent Yes 01/08/25 08:25 [email or web address] Spontaneous unlabored Yes 01/08/25 08:25 [email or web address] respirations Mental status Asleep 01/08/25 08:25 [email or web address] nausea No 01/08/25 08:25 [email or web address] Vomiting No 01/08/25 08:25 [email or web address] Anesthesia Postop Eval I: Fluid Summary Crystalloid volume administer 500 01/08/25 08:25 [email or web address] (ml) Colloids volume administered ( ml) Blood Product volume administered (ml) Total IV fluid infused 500 01/08/25 08:25 [email or web address] Anesthesia Postop Eval I: Summary Notes Anesthesia Complication No 01/08/25 08:25 [email or web address] Anesthesia Complication Comment: Post-operative progress note Anesthesia: Postop Eval II Evaluation Mental status: Awake Pain Level: 0 nausea: No Vomiting: No Complications Anesthesia Complication: No
== END 2025-01-08 09:01 | disposition home or self-care (01) ==
LOC: EN 06:24 → AC 06:26
PROVIDERS: PCP Internal Medicine; Referring Provider Internal Medicine; Visit Provider Internal Medicine Gastroenterology
PROC: 0DJD8ZZ Inspection of Lower Intestinal Tract, Via Natural or Artificial Opening Endoscopic (ICD-10-PCS; CPT 45378; principal; 2025-01-08 07:25)
DX: Z12.11 Encounter for screening for malignant neoplasm of colon (principal); K64.0 First degree hemorrhoids; E78.00 Pure hypercholesterolemia, unspecified; Z79.899 Other long term (current) drug therapy
CPT/HCPCS: 45378; J2405